=== PATIENT | female | born 1985 | race Caucasian/White ===

== ENCOUNTER 2017-09-22 18:42 | Inpatient (IN) | payer MEDICAID ==
[~2017-09-22] VITALS: Ht 165.1 cm; Wt 72.7 kg
[2017-09-22 18:50] VITALS: BP 142/68; PULSE 69; RESP 23; TEMP 97.6; O2SAT 100
[2017-09-22 21:11] LABS: AUTOMATED NEUTROPHIL # 6.6 TH/MM3 (1.8-7.7); BASOPHIL # 0.1 TH/MM3 (0-0.2); BASOPHIL % 0.6 % (0.0-2.0); EOSINOPHIL % 0.4 % (0.0-4.0); HEMATOCRIT 32.4 % (35.0-46.0); HEMOGLOBIN 11.6 GM/DL (11.6-15.3); LYMPH % 15.7 % (9.0-44.0); LYMPHOCYTE # 1.3 TH/MM3 (1.0-4.8); MEAN CELL VOLUME 71.8 FL (80.0-100.0); MEAN CORPUSCULAR HEMOGLOBIN 25.8 PG (27.0-34.0); MEAN CORPUSCULAR HGB CONC 35.9 % (32.0-36.0); MONO % 4.9 % (0.0-8.0); MONOCYTE # 0.4 TH/MM3 (0-0.9); NEUT % 78.4 % (16.0-70.0); PLATELET COUNT 156 TH/MM3 (150-450); WHITE BLOOD COUNT 8.5 TH/MM3 (4.0-11.0)
[2017-09-22 21:28] VITALS: BP 154/82; PULSE 70; RESP 24; TEMP 97.9; O2SAT 100
--- NOTE | 2017-09-22 21:28 | PD ---
HPI Chief Complaint: Abdominal Pain Time Seen by Provider: 21:16 Travel History International Travel<30 days: No Contact w/Intl Traveler<30days: No Traveled to known affect area: No History of Present Illness HPI 32-year-old female presents to the emergency department for evaluation of left upper quadrant abdominal pain that has been ongoing for 1 week, but worsened today. Patient rates the pain 10/10 without radiation, sharp and stabbing. Patient is Australian-speaking. Her nurse at bedside translates for me. The patient states she had this pain once before and was diagnosed with pancreatitis in [place]. She states she went to [facility] this morning and had labs and CT scan done. She states she was told that everything was okay was discharged home. However, the pain has been worsening since. No fevers or chills. Patient reports nausea, vomiting 1 today. She also reports 3 episodes of diarrhea today. She denies . She has history of cholecystectomy, appendectomy, , ovarian cyst. Patient denies any alcohol, tobacco, illicit drug use. No exacerbating or alleviating factors. Moderate severity. PFSH Past Medical History Diabetes: Yes Social History Alcohol Use: No Tobacco Use: No Substance Use: No Allergies-Medications (Allergen,Severity, Reaction): Coded Allergies: No Known Allergies (Unverified , 09/22/17) Review of Systems Except as stated in HPI: all other systems reviewed are Neg Physical Exam Narrative GENERAL: Well-nourished, well-developed female patient, afebrile. SKIN: Focused skin assessment warm/dry. HEAD: Normocephalic. Atraumatic. EYES: No scleral icterus. No injection or drainage. NECK: Supple, trachea midline. No JVD or lymphadenopathy. CARDIOVASCULAR: Regular rate and rhythm without murmurs, gallops, or rubs. RESPIRATORY: Breath sounds equal bilaterally. No accessory muscle use. Lungs sounds are clear to auscultation. GASTROINTESTINAL: Abdomen soft, and nondistended. Patient has diffuse tenderness to palpation.. MUSCULOSKELETAL: No cyanosis, or edema. BACK: Nontender without obvious deformity. No CVA tenderness. Data Data Last Documented VS Vital Signs Date Time Temp Pulse Resp B/P (MAP) Pulse Ox O2 Delivery O2 Flow Rate FiO2 09/22/17 21:28 97.9 70 24 154/82 (106) 100 Room Air Orders Orders Complete Blood Count With Diff (09/22/17 18:52) Comprehensive Metabolic Panel (09/22/17 18:52) Lipase (09/22/17 18:52) Prothrombin Time / Inr (Pt) (09/22/17 18:52) Act Partial Throm Time (Ptt) (09/22/17 18:52) Urinalysis - C+S If Indicated (09/22/17 18:52) Ed Urine Pregnancytest Poc (09/22/17 18:52) Electrocardiogram (09/22/17 ) Sodium Chlor 0.9% 1000 Ml Inj (Ns 1000 M (09/22/17 21:30) Morphine Inj (Morphine Inj) (09/22/17 21:30) Ondansetron Inj (Zofran Inj) (09/22/17 21:30) Labs Laboratory Tests Test 09/22/17 20:20 09/22/17 20:30 Urine Color YELLOW Urine Turbidity CLEAR Urine pH 7.0 Urine Specific [place] 1.039 Urine Protein TRACE mg/dL Urine Glucose (UA) 1000 mg/dL Urine Ketones 150 mg/dL Urine Occult Blood NEG Urine Nitrite NEG Urine Bilirubin NEG Urine Urobilinogen LESS THAN 2.0 MG/DL Urine Leukocyte Esterase TRACE Urine RBC 1 /hpf Urine WBC 5 /hpf Urine Squamous Epithelial Cells 6 /hpf Microscopic Urinalysis Comment CULT NOT INDICATED White Blood Count 8.5 TH/MM3 Red Blood Count 4.50 MIL/MM3 Hemoglobin 11.6 GM/DL Hematocrit 32.4 % Mean Corpuscular Volume 71.8 FL Mean Corpuscular Hemoglobin 25.8 PG Mean Corpuscular Hemoglobin Concent 35.9 % Red Cell Distribution Width 17.0 % Platelet Count 156 TH/MM3 Mean Platelet Volume 11.0 FL Neutrophils (%) (Auto) 78.4 % Lymphocytes (%) (Auto) 15.7 % Monocytes (%) (Auto) 4.9 % Eosinophils (%) (Auto) 0.4 % Basophils (%) (Auto) 0.6 % Neutrophils # (Auto) 6.6 TH/MM3 Lymphocytes # (Auto) 1.3 TH/MM3 Monocytes # (Auto) 0.4 TH/MM3 Eosinophils # (Auto) 0.0 TH/MM3 Basophils # (Auto) 0.1 TH/MM3 CBC Comment AUTO DIFF Differential Total Cells Counted 100 Neutrophils % (Manual) 79 % Band Neutrophils % 4 % Lymphocytes % 12 % Monocytes % 2 % Eosinophils % 2 % Basophils % 1 % Neutrophils # (Manual) 7.1 TH/MM3 Differential Comment FINAL DIFF MANUAL Platelet Estimate NORMAL Platelet Morphology Comment ENLARGED Prothrombin Time 10.0 SEC Prothromb Time International Ratio 1.0 RATIO Activated Partial Thromboplast Time 22.9 SEC Blood Urea Nitrogen 7 MG/DL Creatinine 0.63 MG/DL Random Glucose 311 MG/DL Total Protein 7.9 GM/DL Albumin 3.2 GM/DL Calcium Level 7.6 MG/DL Alkaline Phosphatase 109 U/L Aspartate Amino Transf (AST/SGOT) 434 U/L Alanine Aminotransferase (ALT/SGPT) 255 U/L Total Bilirubin 0.4 MG/DL Sodium Level 132 MEQ/L Potassium Level 4.2 MEQ/L Chloride Level 98 MEQ/L Carbon Dioxide Level 18.6 MEQ/L Anion Gap 15 MEQ/L Estimat Glomerular Filtration Rate 109 ML/MIN Lipase 1314 U/L [facility] Medical Decision Making Medical Screen Exam Complete: Yes Emergency Medical Condition: Yes Medical Record Reviewed: Yes Differential Diagnosis Pancreatitis versus diverticulitis versus UTI Narrative Course 32-year-old female presents to the emergency department for evaluation of abdominal pain for 1 week, worsening today. Patient states she was seen at [facility] this morning. Those records will be obtained. EKG, CBC , CMP, lipase, PTT, PT/INR, UA, urine test are ordered and pending. Patient is given normal saline 1 L IV bolus, morphine 4 mg IV, Zofran 4 mg IV. EKG shows sinus rhythm, heart rate 69, no acute ST changes. CBC shows no acute abnormality. CMP shows glucose 311, AST 434, ALT 255. Lipase is 1314. Coags show no acute abnormality. UA is negative for acute infection. UPT is negative. I obtained records from [facility]. CT abdomen/pelvis with IV contrast showed minimal peripancreatic stranding in the region of the head and neck likely representing mild acute interstitial edematous pancreatitis, mild dilation of the common bile duct with distal tapering, findings may be within normal limits post cholecystectomy. Hepatic steatosis with he pad of splenomegaly. [facility] is paged for admission. Diagnosis Primary Impression: Acute pancreatitis Qualified Codes: K85.90 - Acute pancreatitis without necrosis or infection, unspecified Additional Impression: Elevated LFTs Admitting Information Admitting Physician Requests: Admit Sabina Patrick Sep 22, 2017 21:28
[2017-09-22] MEDS ORDERED: SODIUM CHLOR 0.9% 1000 ML INJ 1,000 ML IV ONE (21:30)
[2017-09-22] MEDS ORDERED: ONDANSETRON HCL 4 MG/2 ML VIAL IV PUSH ONE (21:30)
[2017-09-22] MEDS ORDERED: MORPHINE SULFATE 4 MG/ML INJ IV PUSH ONE (21:30)
[2017-09-22 21:33] LABS: BILIRUBIN, URINE NEG (NEG); BLOOD, URINE NEG (NEG); GLUCOSE,URINE 1000 mg/dL (NEG); KETONE, URINE 150 mg/dL (NEG); NITRITE,URINE NEG (NEG); SQUAMOUS EPITHELIAL CELL URINE 6 /hpf (0-5); URINE COLOR YELLOW (YELLW/STRAW); URINE LEUKOCYTE ESTERASE TRACE (NEG)
[2017-09-22 21:46] LABS: ALBUMIN 3.2 GM/DL (3.4-5.0); ALKALINE PHOSPHATASE 109 U/L (45-117); ALT (GPT) 255 U/L (10-53); AST (GOT) 434 U/L (15-37); BICARBONATE 18.6 MEQ/L (21.0-32.0); BLOOD UREA NITROGEN 7 MG/DL (7-18); CALCIUM 7.6 MG/DL (8.5-10.1); CHLORIDE 98 MEQ/L (98-107); CREATININE 0.63 MG/DL (0.50-1.00); GLOMERULAR FILTRATION RATE 109 ML/MIN (>89); GLUCOSE,RANDOM 311 MG/DL (74-106); SODIUM (NA) 132 MEQ/L (136-145); TOTAL BILIRUBIN ADULT 0.4 MG/DL (0.2-1.0); TOTAL PROTEIN 7.9 GM/DL (6.4-8.2)
[2017-09-22 22:31] LABS: BANDS 4 % (0-6); BASOPHILS 1 % (0-2); LYMPHOCYTES 12 % (9-44); MONOCYTES 2 % (0-8); NEUTROPHIL # MANUAL DIFF 7.1 TH/MM3 (1.8-7.7); POLYS (SEG NEUTROPHILS) 79 % (16-70)
[2017-09-22] MEDS ORDERED: NALOXONE HCL 0.4 MG/ML AMP IV PUSH PRN (23:15)
[2017-09-22] MEDS ORDERED: ONDANSETRON HCL 4 MG/2 ML VIAL IVP PRN (23:15)
[2017-09-22] MEDS ORDERED: SODIUM CHLORIDE 0.9% FLUSH 10 ML FLUSH IV FLUSH PRN (23:15)
--- NOTE | 2017-09-22 23:33 | HHI.HP ---
HPI Service [facility] Primary Care Physician Unknown Admission Diagnosis acute pancreatitis, elevated LFTs Diagnoses: Chief Complaint: abdominal pain Travel History International Travel<30 Days: No Contact w/Intl Traveler <30 Da: No Traveled to Known Affected Are: No History of Present Illness 32-year-old female with a history of HLD, HTN, and chronic pain presents to the emergency department for left upper quadrant abdominal pain that has been ongoing for 1 week, but worsened today. Patient is Swiss-speaking. Her nurse at bedside translates for me. Patient states the pain is a 6/10 without radiation, and is stabbing in nature. The patient states she had this pain once before and was diagnosed with pancreatitis in [place]. Denies any alcohol use. She went to [facility] this morning and had labs and CT scan done. Labs were unremarkable and not 3x the normal limit and she was discharged home. The pain has been getting worse since leaving [place]. She denies any fevers or chills. She does complain of nausea but no vomiting. CT abdomen reviewed from [facility] and shows minimal peripancreatic stranding in the region of the head and neck likely representing mild acute interstitial edematous pancreatitis. Mild dilation of the common bile duct with distal tapering. Review of Systems Except as stated in HPI: all other systems reviewed are Neg Past Family Social History Past Medical History HLD HTN Chronic pain Past Surgical History Cholecystectomy Appendectomy C Section Reported Medications Reported Meds & Active Scripts Active Active Prescriptions or Reported Medications Unobtainable Allergies: Coded Allergies: No Known Allergies (Unverified , 09/22/17) Active Ordered Medications Current Medications Medications (Trade) Dose Ordered Sig/Gabbi Route Start Time Stop Time Status Last Admin Sodium Chloride 1,000 ml @ 100 mls/hr Q10H IV 09/22/17 23:15 09/23/17 00:41 (NS Flush) 2 ml UNSCH PRN IV FLUSH 09/22/17 23:15 (NS Flush) 2 ml BID IV FLUSH 09/23/17 09:00 (Zofran Inj) 4 mg Q6H PRN IVP 09/22/17 23:15 (Narcan Inj) 0.4 mg UNSCH PRN IV PUSH 09/22/17 23:15 (Morphine Inj) 2 mg Q3H PRN IV PUSH 09/22/17 23:45 (Morphine Inj) 4 mg Q3H PRN IV PUSH 09/22/17 23:45 09/23/17 00:48 (Flu (Quadrivalent) Vaccine Inj) 0.5 ml ONCE ONCE IM 09/24/17 10:00 09/24/17 10:01 Family History Patient denies any family history Social History Patient denies any tobacco, alcohol or illicit drug use Physical Exam Vital Signs Vital Signs Date Time Temp Pulse Resp B/P (MAP) Pulse Ox O2 Delivery O2 Flow Rate FiO2 09/22/17 21:28 97.9 70 24 154/82 (106) 100 Room Air 09/22/17 18:50 97.6 69 23 142/68 (92) 100 Physical Exam GENERAL: This is a well-nourished, well-developed patient, in minimal distress. SKIN: No rashes, ecchymoses or lesions. Cool and dry. HEAD: Atraumatic. Normocephalic. EYES: Pupils equal round and reactive. No injection or drainage. ENT: Nose without bleeding, purulent drainage or septal hematoma. Airway patent. NECK: Trachea midline. CARDIOVASCULAR: Regular rate and rhythm without murmurs, gallops, or rubs. RESPIRATORY: Clear to auscultation. Breath sounds equal bilaterally. No wheezes , rales, or rhonchi. GASTROINTESTINAL: Abdomen soft, defuse tenderness, nondistended. MUSCULOSKELETAL: Extremities without clubbing, cyanosis, or edema. No calf tenderness. NEUROLOGICAL: Awake and alert. Swiss speaking. Motor and sensory grossly within normal limits. Normal speech. Laboratory Laboratory Tests Test 09/22/17 20:20 09/22/17 20:30 Urine Color YELLOW Urine Turbidity CLEAR Urine pH 7.0 Urine Specific [place] 1.039 Urine Protein TRACE Urine Glucose (UA) 1000 Urine Ketones 150 Urine Occult Blood NEG Urine Nitrite NEG Urine Bilirubin NEG Urine Urobilinogen LESS THAN 2.0 Urine Leukocyte Esterase TRACE Urine RBC 1 Urine WBC 5 Urine Squamous Epithelial Cells 6 Microscopic Urinalysis Comment CULT NOT INDICATED White Blood Count 8.5 Red Blood Count 4.50 Hemoglobin 11.6 Hematocrit 32.4 Mean Corpuscular Volume 71.8 Mean Corpuscular Hemoglobin 25.8 Mean Corpuscular Hemoglobin Concent 35.9 Red Cell Distribution Width 17.0 Platelet Count 156 Mean Platelet Volume 11.0 Neutrophils (%) (Auto) 78.4 Lymphocytes (%) (Auto) 15.7 Monocytes (%) (Auto) 4.9 Eosinophils (%) (Auto) 0.4 Basophils (%) (Auto) 0.6 Neutrophils # (Auto) 6.6 Lymphocytes # (Auto) 1.3 Monocytes # (Auto) 0.4 Eosinophils # (Auto) 0.0 Basophils # (Auto) 0.1 CBC Comment AUTO DIFF Differential Total Cells Counted 100 Neutrophils % (Manual) 79 Band Neutrophils % 4 Lymphocytes % 12 Monocytes % 2 Eosinophils % 2 Basophils % 1 Neutrophils # (Manual) 7.1 Differential Comment FINAL DIFF MANUAL Platelet Estimate NORMAL Platelet Morphology Comment ENLARGED Prothrombin Time 10.0 Prothromb Time International Ratio 1.0 Activated Partial Thromboplast Time 22.9 Blood Urea Nitrogen 7 Creatinine 0.63 Random Glucose 311 Total Protein 7.9 Albumin 3.2 Calcium Level 7.6 Alkaline Phosphatase 109 Aspartate Amino Transf (AST/SGOT) 434 Alanine Aminotransferase (ALT/SGPT) 255 Total Bilirubin 0.4 Sodium Level 132 Potassium Level 4.2 Chloride Level 98 Carbon Dioxide Level 18.6 Anion Gap 15 Estimat Glomerular Filtration Rate 109 Lipase 1314 Result Diagram: 09/22/17202909/22/172029 Caprini VTE Risk Assessment Caprini VTE Risk Assessment: No/Low Risk (score <= 1) Caprini Risk Assessment Model Point Value = 1 Point Value = 2 Point Value = 3 Point Value = 5 Age 41-60 Minor surgery BMI > 25 kg/m2 Swollen legs Varicose veins or History of unexplained or recurrent spontaneous Oral contraceptives or hormone replacement Sepsis (< 1 month) Serious lung disease, including pneumonia (< 1 month) Abnormal pulmonary function Acute myocardial infarction Congestive heart failure (< 1 month) History of inflammatory bowel disease Medical patient at bed rest Age 61-74 Arthroscopic surgery Major open surgery (> 45 min) Laparoscopic surgery (> 45 min) Malignancy Confined to bed (> 72 hours) Immobilizing plaster cast Central venous access Age >= 75 History of VTE Family history of VTE Factor V Leiden Prothrombin [id number] Lupus anticoagulant Anticardiolipin antibodies Elevated serum homocysteine Heparin-induced thrombocytopenia Other congenital or acquired thrombophilia Stroke (< 1 month) Elective arthroplasty Hip, pelvis, or leg fracture Acute spinal cord injury (< 1 month) Prophylaxis Regimen Total Risk Factor Score Risk Level Prophylaxis Regimen 0-1 Low Early ambulation 2 Moderate Order ONE of the following: *Sequential Compression Device (SCD) *Heparin 5000 units SQ BID 3-4 Higher Order ONE of the following medications: *Heparin 5000 units SQ TID *Enoxaparin/Lovenox 40 mg SQ daily (WT < 150 kg, CrCl > 30 mL/min) *Enoxaparin/Lovenox 30 mg SQ daily (WT < 150 kg, CrCl > 10-29 mL/min) *Enoxaparin/Lovenox 30 mg SQ BID (WT < 150 kg, CrCl > 30 mL/min) AND/OR *Sequential Compression Device (SCD) 5 or more Highest Order ONE of the following medications: *Heparin 5000 units SQ TID (Preferred with Epidurals) *Enoxaparin/Lovenox 40 mg SQ daily (WT < 150 kg, CrCl > 30 mL/min) *Enoxaparin/Lovenox 30 mg SQ daily (WT < 150 kg, CrCl > 10-29 mL/min) *Enoxaparin/Lovenox 30 mg SQ BID (WT < 150 kg, CrCl > 30 mL/min) AND *Sequential Compression Device (SCD) Assessment and Plan Problem List: (1) Transaminitis ICD Code: R74.0 - Nonspecific elevation of levels of transaminase and lactic acid dehydrogenase [LDH] (2) Acute pancreatitis ICD Code: K85.90 - Acute pancreatitis without necrosis or infection, unspecified Status: Acute Assessment and Plan 32-year-old female with a history of HLD, HTN, and chronic pain presents to the emergency department for left upper quadrant abdominal pain that has been ongoing for 1 week. Pancreatitis, acute on chronic, lipase 1314 CT abdomen reviewed from [facility] and shows minimal peripancreatic stranding in the region of the head and neck likely representing mild acute interstitial edematous pancreatitis. Mild dilation of the common bile duct with distal tapering. -IVF for hydration -Morphine IV for pain management -NPO Transaminitis, ast 435 alt 255 -Cont IVF -Consult GI for recommendations Hyperglycemia, glucose 355 -Accu checks with SSI -A1C ordered DVT prophylaxis: SCDs Discussed Condition With Patient, RN Physician Certification 2 Midnight Certification Type: Admission for Inpatient Services Order for Inpatient Services The services are ordered in accordance with Medicare regulations or non- Medicare payer requirements, as applicable. In the case of services not specified as inpatient-only, they are appropriately provided as inpatient services in accordance with the 2-midnight benchmark. Estimated LOS (days): 2 days is the estimated time the patient will need to remain in the hospital, assuming treatment plan goals are met and no additional complications. Post-Hospital Plan: Home Problem Qualifiers (1) Acute pancreatitis: Qualified Codes: K85.90 - Acute pancreatitis without necrosis or infection, unspecified Sonia Galeano Sep 22, 2017 23:33
[2017-09-22] MEDS ORDERED: MORPHINE SULFATE 2 MG/ML INJ IV PUSH PRN (23:45)
[2017-09-22] MEDS ORDERED: MORPHINE SULFATE 4 MG/ML INJ IV PUSH PRN (23:45)
[2017-09-23] VITALS: BP 115/65; PULSE 66; RESP 15; TEMP 96.4; O2SAT 97
[2017-09-23] MEDS: SODIUM CHLOR 0.9% 1000 ML INJ 1,000 ML IV SCH ×3 (00:41→20:06)
[2017-09-23] MEDS ORDERED: DEXTROSE 50% IN WATER 50 ML VIAL(D50) IV PUSH PRN (02:00)
[2017-09-23] MEDS ORDERED: GLUCAGON 1 MG/ML VIAL OTHER PRN (02:00)
[2017-09-23 08:00] VITALS: BP 112/66; PULSE 65; RESP 17; TEMP 97.4; O2SAT 99
[2017-09-23] MEDS: INSULIN ASPART SUPPLEMENTAL SCALE SQ SCH ×4 (08:00→21:00)
[2017-09-23 08:14] LABS: AUTOMATED NEUTROPHIL # 5.9 TH/MM3 (1.8-7.7); BASOPHIL % 0.5 % (0.0-2.0); EOSINOPHIL # 0.1 TH/MM3 (0-0.4); EOSINOPHIL % 1.3 % (0.0-4.0); HEMATOCRIT 30.7 % (35.0-46.0); HEMOGLOBIN 10.5 GM/DL (11.6-15.3); LYMPH % 15.8 % (9.0-44.0); LYMPHOCYTE # 1.2 TH/MM3 (1.0-4.8); MEAN CELL VOLUME 71.6 FL (80.0-100.0); MEAN CORPUSCULAR HEMOGLOBIN 24.6 PG (27.0-34.0); MEAN CORPUSCULAR HGB CONC 34.4 % (32.0-36.0); MEAN PLATELET VOLUME 10.7 FL (7.0-11.0); MONO % 5.3 % (0.0-8.0); MONOCYTE # 0.4 TH/MM3 (0-0.9); NEUT % 77.1 % (16.0-70.0); PLATELET COUNT 143 TH/MM3 (150-450); RED BLOOD COUNT 4.28 MIL/MM3 (4.00-5.30); RED CELL DISTRIBUTION WIDTH 17.1 % (11.6-17.2); WHITE BLOOD COUNT 7.7 TH/MM3 (4.0-11.0)
[2017-09-23] MEDS: SODIUM CHLORIDE 0.9% FLUSH 10 ML FLUSH IV FLUSH SCH ×2 (08:47→20:06)
[2017-09-23 09:00] LABS: BICARBONATE 20.8 MEQ/L (21.0-32.0); CALCIUM 7.4 MG/DL (8.5-10.1); CREATININE 0.5 MG/DL (0.50-1.00)
[2017-09-23 09:14] LABS: TOTAL PROTEIN 7.1 GM/DL (6.4-8.2)
[2017-09-23 09:19] LABS: CALCIUM-PROTEIN CORRECTED 7.4 MG/DL (8.5-10.1)
--- NOTE | 2017-09-23 11:20 | PD.CONS ---
HPI History of Present Illness This is a 32 year old Danish speaking female who presented with upper quadrant pain, onset 1 day. She has had this pain before, episodes October and May of last year. No procedures were done. No hx prior probloems with liver or gallbladder. Never had EGD or colonoscopy. Deneis n/v. Denying pain at this time but she is tender on exam. CT done at [facility] showed mild pancreatitis and mild dilated CBD with distal tapering. (Daly Lyons) PFSH Past Medical History HLD HTN Chronic pain asthma DM Past Surgical History Cholecystectomy Appendectomy C Section (Daly Lyons) Coded Allergies: No Known Allergies (Unverified , 09/22/17) Family History Patient denies any family history Social History Patient denies any tobacco, alcohol or illicit drug use (Daly Lyons) Review of Systems Constitutional: DENIES: Chills Endocrine: DENIES: Polydipsia Eyes: DENIES: Blurred vision Ears, nose, mouth, throat: DENIES: Hearing loss Respiratory: DENIES: Cough Cardiovascular: DENIES: Chest pain Gastrointestinal: COMPLAINS OF: Abdominal pain, DENIES: Bloody stools, Nausea, Vomiting, Hematemesis Genitourinary: DENIES: Hematuria Musculoskeletal: DENIES: Muscle aches Integumentary: DENIES: Abnormal pigmentation Hematologic/lymphatic: DENIES: Bruising Neurologic: DENIES: Abnormal gait Psychiatric: DENIES: Confusion (Daly Lyons) GI Exam Vitals I&O Vital Signs Date Time Temp Pulse Resp B/P (MAP) Pulse Ox O2 Delivery O2 Flow Rate FiO2 09/23/17 08:00 97.4 65 17 112/66 (81) 99 09/23/17 01:00 18 09/23/17 00:00 96.4 66 15 115/65 (82) 97 09/22/17 21:28 97.9 70 24 154/82 (106) 100 Room Air 09/22/17 18:50 97.6 69 23 142/68 (92) 100 I/O 09/22/17 09/22/17 09/22/17 09/23/17 09/23/17 09/23/17 06:59 14:59 22:59 06:59 14:59 22:59 Intake Total 1000 ml Balance 1000 ml Intake IV Total 1000 ml Laboratory Test 09/22/17 20:20 09/22/17 20:30 09/23/17 07:38 Urine Color YELLOW Urine Turbidity CLEAR Urine pH 7.0 Urine Specific [place] 1.039 Urine Protein TRACE mg/dL Urine Glucose (UA) 1000 mg/dL Urine Ketones 150 mg/dL Urine Occult Blood NEG Urine Nitrite NEG Urine Bilirubin NEG Urine Urobilinogen LESS THAN 2.0 MG/DL Urine Leukocyte Esterase TRACE Urine RBC 1 /hpf Urine WBC 5 /hpf Urine Squamous Epithelial Cells 6 /hpf Microscopic Urinalysis Comment CULT NOT INDICATED White Blood Count 8.5 TH/MM3 7.7 TH/MM3 Red Blood Count 4.50 MIL/MM3 4.28 MIL/MM3 Hemoglobin 11.6 GM/DL 10.5 GM/DL Hematocrit 32.4 % 30.7 % Mean Corpuscular Volume 71.8 FL 71.6 FL Mean Corpuscular Hemoglobin 25.8 PG 24.6 PG Mean Corpuscular Hemoglobin Concent 35.9 % 34.4 % Red Cell Distribution Width 17.0 % 17.1 % Platelet Count 156 TH/MM3 143 TH/MM3 Mean Platelet Volume 11.0 FL 10.7 FL Neutrophils (%) (Auto) 78.4 % 77.1 % Lymphocytes (%) (Auto) 15.7 % 15.8 % Monocytes (%) (Auto) 4.9 % 5.3 % Eosinophils (%) (Auto) 0.4 % 1.3 % Basophils (%) (Auto) 0.6 % 0.5 % Neutrophils # (Auto) 6.6 TH/MM3 5.9 TH/MM3 Lymphocytes # (Auto) 1.3 TH/MM3 1.2 TH/MM3 Monocytes # (Auto) 0.4 TH/MM3 0.4 TH/MM3 Eosinophils # (Auto) 0.0 TH/MM3 0.1 TH/MM3 Basophils # (Auto) 0.1 TH/MM3 0.0 TH/MM3 CBC Comment AUTO DIFF DIFF FINAL Differential Total Cells Counted 100 Neutrophils % (Manual) 79 % Band Neutrophils % 4 % Lymphocytes % 12 % Monocytes % 2 % Eosinophils % 2 % Basophils % 1 % Neutrophils # (Manual) 7.1 TH/MM3 Differential Comment FINAL DIFF MANUAL Platelet Estimate NORMAL Platelet Morphology Comment ENLARGED Prothrombin Time 10.0 SEC Prothromb Time International Ratio 1.0 RATIO Activated Partial Thromboplast Time 22.9 SEC Blood Urea Nitrogen 7 MG/DL 5 MG/DL Creatinine 0.63 MG/DL 0.50 MG/DL Random Glucose 311 MG/DL 246 MG/DL Total Protein 7.9 GM/DL 7.1 GM/DL Albumin 3.2 GM/DL Calcium Level 7.6 MG/DL 7.4 MG/DL Alkaline Phosphatase 109 U/L Aspartate Amino Transf (AST/SGOT) 434 U/L Alanine Aminotransferase (ALT/SGPT) 255 U/L Total Bilirubin 0.4 MG/DL Sodium Level 132 MEQ/L 134 MEQ/L Potassium Level 4.2 MEQ/L 3.6 MEQ/L Chloride Level 98 MEQ/L 101 MEQ/L Carbon Dioxide Level 18.6 MEQ/L 20.8 MEQ/L Anion Gap 15 MEQ/L 12 MEQ/L Estimat Glomerular Filtration Rate 109 ML/MIN 142 ML/MIN Lipase 1314 U/L 737 U/L Protein Corrected Calcium 7.4 MG/DL Physical Examination HEENT: PERRL; normocephalic; atraumatic; no jaundice. CHEST: CTA CARDIAC: RRR ABDOMEN: Soft, nondistended, epigastric and LUQ TTP; no hepatosplenomegaly; bowel sounds are present in all four quadrants. EXTREMITIES: No clubbing, cyanosis, or edema. SKIN: Normal; no rash; no jaundice. DIRECTOR STRATEGIC ACCOUNT MANAGEMENT: No focal deficits; alert and oriented times three. (Daly Lyons) Assessment and Plan Plan ASSESSMENT - abd pain, elevated LFTs- could be gallstone pancreatitis, r/t hypertriglyceridemia, could have passed stone CT showed mild pancreatitis, mild dilatation CBD with distal tapering. elevated AST 434, ALT 255 on admission, Tbil WNL. lipase elevated 1314 on admission and trending down. pt says her pain is improving but is tender on exam. of note pts triglycerides are elevated 1350 PLAN - consider fibrate - MRCP - NPO - rck LFTs, lipase in am - supportive care - further recs to follow depending on MRCP result pt seen by myself and Dr Escalera and this note is on his behalf (Daly Lyons) Plan Patient was seen and examined, agree with above note, pancreatitis with elevation of liver function test, seems to be improving, questionable alcohol related, I had a discussion with radiology again with a second opinion to ensure that there is no filling defect or mass that require ERCP, he thinks that it's just taper down because of the edema in the pancreas and there is no masses or stones and since the patient's liver function tests including total bilirubin improving significantly we will just monitor and see how the patient is doing (Jorge Escalera MD) Daly Lyons Sep 23, 2017 11:20 Jorge Escalera MD Sep 24, 2017 09:42
--- NOTE | 2017-09-23 11:52 | HHI.PR ---
Subjective Remarks 32-year-old female with a history of HLD, HTN, and chronic pain presents to the emergency department for left upper quadrant abdominal pain that has been ongoing for 1 week, but worsened today. Patient is Ukrainian-speaking. Her nurse at bedside translates for me. Patient states the pain is a 6/10 without radiation, and is stabbing in nature. The patient states she had this pain once before and was diagnosed with pancreatitis in [place]. Denies any alcohol use. She went to [facility] this morning and had labs and CT scan done. Labs were unremarkable and not 3x the normal limit and she was discharged home. The pain has been getting worse since leaving [place]. She denies any fevers or chills. She does complain of nausea but no vomiting. CT abdomen reviewed from [facility] and shows minimal peripancreatic stranding in the region of the head and neck likely representing mild acute interstitial edematous pancreatitis. Mild dilation of the common bile duct with distal tapering. 09-23 patient has been seen by gastroenterology. They have ordered an MRCP We'll get a.m. labs Still some tenderness Continue pain control Continue on fluids Keep nothing by mouth Objective Vitals Vital Signs Date Time Temp Pulse Resp B/P (MAP) Pulse Ox O2 Delivery O2 Flow Rate FiO2 09/23/17 08:00 97.4 65 17 112/66 (81) 99 09/23/17 01:00 18 09/23/17 00:00 96.4 66 15 115/65 (82) 97 09/22/17 21:28 97.9 70 24 154/82 (106) 100 Room Air 09/22/17 18:50 97.6 69 23 142/68 (92) 100 I/O 09/22/17 09/22/17 09/22/17 09/23/17 09/23/17 09/23/17 07:00 15:00 23:00 07:00 15:00 23:00 Intake Total 1000 ml Balance 1000 ml Intake IV Total 1000 ml Result Diagram: 09/23/17 0738 09/23/17 0738 Other Results Laboratory Tests Test 09/22/17 20:20 09/22/17 20:30 09/23/17 07:38 Urine Color YELLOW Urine Turbidity CLEAR Urine pH 7.0 Urine Specific [place] 1.039 Urine Protein TRACE mg/dL Urine Glucose (UA) 1000 mg/dL Urine Ketones 150 mg/dL Urine Occult Blood NEG Urine Nitrite NEG Urine Bilirubin NEG Urine Urobilinogen LESS THAN 2.0 MG/DL Urine Leukocyte Esterase TRACE Urine RBC 1 /hpf Urine WBC 5 /hpf Urine Squamous Epithelial Cells 6 /hpf Microscopic Urinalysis Comment CULT NOT INDICATED White Blood Count 8.5 TH/MM3 7.7 TH/MM3 Red Blood Count 4.50 MIL/MM3 4.28 MIL/MM3 Hemoglobin 11.6 GM/DL 10.5 GM/DL Hematocrit 32.4 % 30.7 % Mean Corpuscular Volume 71.8 FL 71.6 FL Mean Corpuscular Hemoglobin 25.8 PG 24.6 PG Mean Corpuscular Hemoglobin Concent 35.9 % 34.4 % Red Cell Distribution Width 17.0 % 17.1 % Platelet Count 156 TH/MM3 143 TH/MM3 Mean Platelet Volume 11.0 FL 10.7 FL Neutrophils (%) (Auto) 78.4 % 77.1 % Lymphocytes (%) (Auto) 15.7 % 15.8 % Monocytes (%) (Auto) 4.9 % 5.3 % Eosinophils (%) (Auto) 0.4 % 1.3 % Basophils (%) (Auto) 0.6 % 0.5 % Neutrophils # (Auto) 6.6 TH/MM3 5.9 TH/MM3 Lymphocytes # (Auto) 1.3 TH/MM3 1.2 TH/MM3 Monocytes # (Auto) 0.4 TH/MM3 0.4 TH/MM3 Eosinophils # (Auto) 0.0 TH/MM3 0.1 TH/MM3 Basophils # (Auto) 0.1 TH/MM3 0.0 TH/MM3 CBC Comment AUTO DIFF DIFF FINAL Differential Total Cells Counted 100 Neutrophils % (Manual) 79 % Band Neutrophils % 4 % Lymphocytes % 12 % Monocytes % 2 % Eosinophils % 2 % Basophils % 1 % Neutrophils # (Manual) 7.1 TH/MM3 Differential Comment FINAL DIFF MANUAL Platelet Estimate NORMAL Platelet Morphology Comment ENLARGED Prothrombin Time 10.0 SEC Prothromb Time International Ratio 1.0 RATIO Activated Partial Thromboplast Time 22.9 SEC Blood Urea Nitrogen 7 MG/DL 5 MG/DL Creatinine 0.63 MG/DL 0.50 MG/DL Random Glucose 311 MG/DL 246 MG/DL Total Protein 7.9 GM/DL 7.1 GM/DL Albumin 3.2 GM/DL Calcium Level 7.6 MG/DL 7.4 MG/DL Alkaline Phosphatase 109 U/L Aspartate Amino Transf (AST/SGOT) 434 U/L Alanine Aminotransferase (ALT/SGPT) 255 U/L Total Bilirubin 0.4 MG/DL Sodium Level 132 MEQ/L 134 MEQ/L Potassium Level 4.2 MEQ/L 3.6 MEQ/L Chloride Level 98 MEQ/L 101 MEQ/L Carbon Dioxide Level 18.6 MEQ/L 20.8 MEQ/L Anion Gap 15 MEQ/L 12 MEQ/L Estimat Glomerular Filtration Rate 109 ML/MIN 142 ML/MIN Lipase 1314 U/L 737 U/L Protein Corrected Calcium 7.4 MG/DL Objective Remarks GENERAL: Awake alert oriented talkative and cooperative in some mild pain speaks mainly Ukrainian but we were able to communicate SKIN: Warm and dry. HEAD: Atraumatic. Normocephalic. EYES: Pupils equal and round. No scleral icterus. No injection or drainage. Extraocular muscles intact ENT: No nasal bleeding or discharge. Mucous membranes pink and moist. Tongue midline NECK: Trachea midline. No JVD. Supple S1-S2 no S3-S4 CARDIOVASCULAR: Regular rate and rhythm. RESPIRATORY: No accessory muscle use. Clear to auscultation. Breath sounds equal bilaterally. GASTROINTESTINAL: Abdomen soft, non-tender, nondistended. Hepatic and splenic margins not palpable. Mild midepigastric tenderness MUSCULOSKELETAL: Extremities without clubbing, cyanosis, or edema. No obvious deformities. NEUROLOGICAL: Awake and alert. No obvious cranial nerve deficits. Motor grossly within normal limits. Five out of 5 muscle strength in the arms and legs. Normal speech. PSYCHIATRIC: Appropriate mood and affect; insight and judgment normal. Medications and IVs Current Medications Sodium Chloride 1,000 ml @ 999 mls/hr BOLUS ONCE IV Last administered on 09/22 22:04; Start 09/22/17 at 21:30; Stop 09/22/17 at 22:30; Status DC Morphine Sulfate (Morphine Inj) 4 mg ONCE ONCE IV PUSH Last administered on at 22:05; Start 09/22/17 at 21:30; Stop 09/22/17 at 21:31; Status DC Ondansetron HCl (Zofran Inj) 4 mg ONCE ONCE IV PUSH Last administered on at 22:05; Start 09/22/17 at 21:30; Stop 09/22/17 at 21:31; Status DC Sodium Chloride 1,000 ml @ 100 mls/hr Q10H IV Last administered on 09/23/17at 08:47; Start 09/22/17 at 23:15 Sodium Chloride (NS Flush) 2 ml UNSCH PRN IV FLUSH FLUSH AFTER USING IV ACCESS ; Start 09/22/17 at 23:15 Sodium Chloride (NS Flush) 2 ml BID IV FLUSH Last administered on 09/23/17at 08: 47; Start 09/23/17 at 09:00 Ondansetron HCl (Zofran Inj) 4 mg Q6H PRN IVP NAUSEA OR VOMITING; Start at 23:15 Naloxone HCl (Narcan Inj) 0.4 mg UNSCH PRN IV PUSH SEE LABEL COMMENTS; Start at 23:15 Morphine Sulfate (Morphine Inj) 2 mg Q3H PRN IV PUSH pain 1-5; Start 09/22/17 at 23:45 Morphine Sulfate (Morphine Inj) 4 mg Q3H PRN IV PUSH pain 6-10 Last administered on 09/23/17at 00:48; Start 09/22/17 at 23:45 Influenza Virus Vaccine (Flu (Quadrivalent) Vaccine Inj) 0.5 ml ONCE ONCE IM ; Start 09/24/17 at 10:00; Stop 09/24/17 at 10:01 Dextrose (D50w (Vial) Inj) 50 ml UNSCH PRN IV PUSH HYPOGLYCEMIA-SEE COMMENTS; Start 09/23/17 at 02:00 Glucagon (Glucagon Inj) 1 mg UNSCH PRN OTHER HYPOGLYCEMIA-SEE COMMENTS; Start 09/23/17 at 02:00 Insulin Aspart (NovoLOG SUPPLEMENTAL SCALE) 1 ACHS SLIDING SCALE SQ ; Start at 08:00 A/P Problem List: (1) Transaminitis ICD Code: R74.0 - Nonspecific elevation of levels of transaminase and lactic acid dehydrogenase [LDH] (2) Acute pancreatitis ICD Code: K85.90 - Acute pancreatitis without necrosis or infection, unspecified Status: Acute Assessment and Plan 32-year-old female with a history of HLD, HTN, and chronic pain presents to the emergency department for left upper quadrant abdominal pain that has been ongoing for 1 week. Pancreatitis, acute on chronic, lipase 1314 CT abdomen reviewed from [facility] and shows minimal peripancreatic stranding in the region of the head and neck likely representing mild acute interstitial edematous pancreatitis. Mild dilation of the common bile duct with distal tapering. -IVF for hydration -Morphine IV for pain management -NPO To have MRCP today Transaminitis, ast 435 alt 255 -Cont IVF -Consult GI for recommendations A.m. labs Hyperglycemia, glucose 355 -Accu checks with SSI -A1C ordered Monitor blood sugars DVT prophylaxis: SCDs Discharge Planning Pending improvement of abdominal pain and clearance by GI Problem Qualifiers (1) Acute pancreatitis: Qualified Codes: K85.90 - Acute pancreatitis without necrosis or infection, unspecified Sergey Lipscomb DO Sep 23, 2017 11:52
[2017-09-23 12:00] VITALS: BP 108/56; PULSE 65; RESP 18; TEMP 97.5; O2SAT 100
[2017-09-23 13:14] LABS: CHOLESTEROL/ HDL RATIO 13.08 RATIO; HDL CHOLESTEROL 19.8 MG/DL (40.0-60.0)
[2017-09-23 15:21] LABS: HEPATITIS A AB IGM NEGATIVE (NEGATIVE); HEPATITIS B CORE AB IGM NEGATIVE (NEGATIVE); HEPATITIS B SURFACE ANTIGEN NEGATIVE (NEGATIVE); HEPATITIS C AB IgG NEGATIVE (NEGATIVE)
[2017-09-23 15:39] LABS: HEMOGLOBIN A1C 11.9 % (4.3-6.0)
[2017-09-23 16:00] VITALS: BP 113/58; PULSE 77; RESP 17; TEMP 98; O2SAT 99
--- NOTE | 2017-09-23 18:55 | RADRPT ---
EXAM DATE/TIME: 09/23/2017 17:21 [place] COMPARISON: No previous studies available for comparison. INDICATIONS : Obstruction. MEDICAL HISTORY : Hypertension. SURGICAL HISTORY : Cholecystectomy. Appendectomy. section. ENCOUNTER: Initial ACUITY: 1 day PAIN SCORE: 5/10 LOCATION: Abdomen. TECHNIQUE: Multiplanar, multisequence magnetic resonance imaging of the abdomen was performed. High-resolution 3D dataset was utilized to reconstruct maximum-intensity projection (MIP) images. FINDINGS: The liver and spleen are free of focal defects. There is decreased. signal intensity on opposed image s within the liver consistent with fatty infiltration. No focal masses are identified no intrahepatic or extra hepatic ductal dilatation is seen. The gallbladder and pancreas demonstrate no abnormality . The adrenal glands demonstrate no abnormality. The kidneys demonstrate no hydronephrosis or mass. N o free fluid or abdominal masses are identified. No para-aortic adenopathy is seen. The common duct is dilated to 11 mm no stones or masses are identified. The pancreatic duct appears n ormal. CONCLUSION: 1. No evidence of acute abdominal process. No masses are identified. 2. Common duct dilatation of uncertain etiology 3. Findings consistent with fatty infiltration of the liver. Pablito Layne MD on September 23, 2017 at 18:51 Board Certified Radiologist. This report was verified electronically.
[2017-09-23 20:00] VITALS: BP 114/65; PULSE 69; RESP 16; TEMP 98.8; O2SAT 100
--- NOTE | 2017-09-23 22:32 | EKG ---
Date Performed: 09/22/2017 Time Performed: 21:26:05 PTAGE: 32 years EKG: Sinus rhythm NORMAL ECG NO PREVIOUS TRACING DOCTOR: Nahomi Laws Interpretating Date/Time 09/23/2017 22:31:19
[2017-09-24] VITALS: BP 109/65; PULSE 70; RESP 16; TEMP 98.2; O2SAT 100
[2017-09-24] MEDS: SODIUM CHLOR 0.9% 1000 ML INJ 1,000 ML IV SCH ×2 (05:23→15:15)
[2017-09-24 06:23] LABS: AUTOMATED NEUTROPHIL # 4.9 TH/MM3 (1.8-7.7); BASOPHIL % 0.6 % (0.0-2.0); EOSINOPHIL # 0.2 TH/MM3 (0-0.4); EOSINOPHIL % 2.9 % (0.0-4.0); HEMOGLOBIN 9.9 GM/DL (11.6-15.3); LYMPHOCYTE # 1.9 TH/MM3 (1.0-4.8); MEAN CORPUSCULAR HEMOGLOBIN 23.8 PG (27.0-34.0); MEAN PLATELET VOLUME 10.3 FL (7.0-11.0); MONO % 6.4 % (0.0-8.0); MONOCYTE # 0.5 TH/MM3 (0-0.9); NEUT % 65.1 % (16.0-70.0); PLATELET COUNT 152 TH/MM3 (150-450); RED BLOOD COUNT 4.17 MIL/MM3 (4.00-5.30); RED CELL DISTRIBUTION WIDTH 17.2 % (11.6-17.2); WHITE BLOOD COUNT 7.5 TH/MM3 (4.0-11.0)
[2017-09-24 06:57] LABS: ALBUMIN 2.6 GM/DL (3.4-5.0); ALT (GPT) 130 U/L (10-53); AST (GOT) 46 U/L (15-37); DIRECT BILIRUBIN ADULT 0.1 MG/DL (0.0-0.2); PHOSPHORUS 2.3 MG/DL (2.5-4.9)
[2017-09-24 07:03] LABS: ALKALINE PHOSPHATASE 83 U/L (45-117); FREE T4 1.05 NG/DL (0.76-1.46); INDIRECT BILIRUBIN 0.2 MG/DL (0.0-0.8); TOTAL BILIRUBIN ADULT 0.3 MG/DL (0.2-1.0); TOTAL PROTEIN 6.6 GM/DL (6.4-8.2)
[2017-09-24] MEDS: INSULIN ASPART SUPPLEMENTAL SCALE SQ SCH ×4 (07:39→21:15)
[2017-09-24 08:00] VITALS: BP 105/51; PULSE 72; RESP 17; TEMP 97.8; O2SAT 100
[2017-09-24] MEDS: SODIUM CHLORIDE 0.9% FLUSH 10 ML FLUSH IV FLUSH SCH ×2 (09:00→21:00)
[2017-09-24] MEDS ORDERED: INFLUENZA VIRUS VACCINE (QUADRIVALENT) 0.5 ML SYR IM ONE (10:00)
[2017-09-24 10:33] LABS: HEMOGLOBIN A1C 11.7 % (4.3-6.0)
[2017-09-24 11:46] VITALS: BP 103/61; PULSE 59; RESP 17; TEMP 97.9; O2SAT 100
--- NOTE | 2017-09-24 14:40 | HHI.GIFU ---
Subjective Remarks Seated by window watching videos on phone. She feels better today, pain improved. She is hungry. (Daly Lyons) Objective Vitals I&O Vital Signs Date Time Temp Pulse Resp B/P (MAP) Pulse Ox O2 Delivery O2 Flow Rate FiO2 09/24/17 11:46 97.9 59 17 103/61 (75) 100 09/24/17 08:00 97.8 72 17 105/51 (69) 100 09/24/17 00:00 98.2 70 16 109/65 (80) 100 09/23/17 20:00 98.8 69 16 114/65 (81) 100 09/23/17 16:00 98.0 77 17 113/58 (76) 99 I/O 09/23/17 09/23/17 09/23/17 09/24/17 09/24/17 09/24/17 07:00 15:00 23:00 07:00 15:00 23:00 Intake Total 1000 ml 0 ml 1000 ml 931 ml Output Total 1 ml Balance 1000 ml 0 ml 1000 ml 930 ml Intake Oral 0 ml IV Total 1000 ml 1000 ml 931 ml Output Urine Total 1 ml # Voids 2 1 # Bowel Movements 0 0 Laboratory Laboratory Tests Test 09/24/17 05:47 White Blood Count 7.5 Red Blood Count 4.17 Hemoglobin 9.9 Hematocrit 30.0 Mean Corpuscular Volume 72.0 Mean Corpuscular Hemoglobin 23.8 Mean Corpuscular Hemoglobin Concent 33.0 Red Cell Distribution Width 17.2 Platelet Count 152 Mean Platelet Volume 10.3 Neutrophils (%) (Auto) 65.1 Lymphocytes (%) (Auto) 25.0 Monocytes (%) (Auto) 6.4 Eosinophils (%) (Auto) 2.9 Basophils (%) (Auto) 0.6 Neutrophils # (Auto) 4.9 Lymphocytes # (Auto) 1.9 Monocytes # (Auto) 0.5 Eosinophils # (Auto) 0.2 Basophils # (Auto) 0.0 CBC Comment DIFF FINAL Differential Comment Hemoglobin A1c 11.7 Phosphorus Level 2.3 Magnesium Level 2.0 Total Bilirubin 0.3 Direct Bilirubin 0.1 Indirect Bilirubin 0.2 Aspartate Amino Transf (AST/SGOT) 46 Alanine Aminotransferase (ALT/SGPT) 130 Alkaline Phosphatase 83 Total Protein 6.6 Albumin 2.6 Amylase Level 29 Lipase 317 Free Thyroxine 1.05 Thyroid Stimulating Hormone 3rd Gen 0.413 Imaging Last Impressions Cholangiopancreatography MRI 09/23/17 0000 Signed Impressions: Service Date/Time: Saturday, September 23, 2017 17:21 - CONCLUSION: 1. No evidence of acute abdominal process. No masses are identified. 2. Common duct dilatation of uncertain etiology 3. Findings consistent with fatty infiltration of the liver. Pablito Layne MD Physical Exam HEENT: PERRL; normocephalic; atraumatic; no jaundice. CHEST: CTA CARDIAC: RRR ABDOMEN: Soft, nondistended, nontender; no hepatosplenomegaly; bowel sounds are present in all four quadrants. EXTREMITIES: No clubbing, cyanosis, or edema. SKIN: Normal; no rash; no jaundice. AUTO TRANSMISSION MECHANIC: No focal deficits; alert and oriented times three. (Daly Lyons) Assessment and Plan Plan ASSESSMENT - abd pain, elevated LFTs- could be gallstone pancreatitis, r/t hypertriglyceridemia, could have passed stone CT showed mild pancreatitis, mild dilatation CBD with distal tapering. elevated AST 434, ALT 255 on admission, Tbil WNL. lipase elevated 1314 on admission and trending down. pt says her pain is improving but is tender on exam. of note pts triglycerides are elevated 1350 09/24/17 Pt doing better, is hungry. lipase, LFTs are trending down. nontender on exam. MRCP showed fatty liver, dilated CBD unclear etiology. PLAN - consider fibrate - clear liquids, advance as tolerated - LFTs, lipase in am - supportive care pt seen by myself and Dr Escalera and this note is on his behalf (Daly Lyons) Plan Patient was seen and examined, agree with above note, most likely fatty liver, we will monitor labs tomorrow, she is doing well we might advance diet as tolerated (Jorge Escalera MD) Daly Lyons Sep 24, 2017 14:40 Jorge Escalera MD Sep 24, 2017 18:02
--- NOTE | 2017-09-24 15:26 | HHI.PR ---
Subjective Remarks Patient is Bolivian-speaking. On interview she states that she is hungry. Her pain is controlled. Objective Vitals Vital Signs Date Time Temp Pulse Resp B/P (MAP) Pulse Ox O2 Delivery O2 Flow Rate FiO2 09/24/17 11:46 97.9 59 17 103/61 (75) 100 09/24/17 08:00 97.8 72 17 105/51 (69) 100 09/24/17 00:00 98.2 70 16 109/65 (80) 100 09/23/17 20:00 98.8 69 16 114/65 (81) 100 09/23/17 16:00 98.0 77 17 113/58 (76) 99 I/O 09/23/17 09/23/17 09/23/17 09/24/17 09/24/17 09/24/17 07:00 15:00 23:00 07:00 15:00 23:00 Intake Total 1000 ml 0 ml 1000 ml 931 ml Output Total 1 ml Balance 1000 ml 0 ml 1000 ml 930 ml Intake Oral 0 ml IV Total 1000 ml 1000 ml 931 ml Output Urine Total 1 ml # Voids 2 1 # Bowel Movements 0 0 Result Diagram: 09/24/17 0547 09/23/17 0738 Objective Remarks GENERAL: Obese, well-developed patient, Bolivian-speaking SKIN: Warm and dry. HEAD: Normocephalic. EYES: No scleral icterus. No injection or drainage. NECK: Supple, trachea midline. No JVD or lymphadenopathy. CARDIOVASCULAR: Regular rate and rhythm without murmurs, gallops, or rubs. RESPIRATORY: Breath sounds equal bilaterally. No accessory muscle use. GASTROINTESTINAL: Abdomen soft, mild diffuse tenderness, nondistended. EXTREMITIES: No cyanosis, or edema. NEUROLOGICAL: Awake, alert, and oriented x 3. Non-focal. A/P Problem List: (1) Transaminitis ICD Code: R74.0 - Nonspecific elevation of levels of transaminase and lactic acid dehydrogenase [LDH] (2) Acute pancreatitis ICD Code: K85.90 - Acute pancreatitis without necrosis or infection, unspecified Status: Acute Assessment and Plan Pancreatitis, acute on chronic Lipase [address] abdomen reviewed from [facility] and shows pancreatitis and Mild dilation of the common bile duct with distal tapering. MRCP shows CBD dilation with fatty liver evident Repeat Lipase ordered for a.m. Appreciate GI consult and recommendations Transaminitis ast 435 alt 255 on admission, trending downward Evidently from fatty liver, exact etiology unclear, may be chronic based on history LFT's ordered for a.m. Hyperglycemia Continue accuchecks and SSI coverage Diabetic Diet when solids resumed DVT prophylaxis SCDs Discharge Planning Pending improvement of abdominal pain and clearance by GI Problem Qualifiers (1) Acute pancreatitis: Qualified Codes: K85.90 - Acute pancreatitis without necrosis or infection, unspecified Dk Montgomery MD Sep 24, 2017 15:26
[2017-09-24 16:00] VITALS: BP 105/70; PULSE 64; RESP 17; TEMP 96.3; O2SAT 100
[2017-09-24 21:09] VITALS: BP 99/58; PULSE 81; RESP 17; TEMP 98.5; O2SAT 95
[2017-09-24 23:34] VITALS: BP 97/55; PULSE 62; RESP 17; TEMP 98.5; O2SAT 99
[2017-09-25] MEDS: SODIUM CHLOR 0.9% 1000 ML INJ 1,000 ML IV SCH ×2 (00:59→08:42)
[2017-09-25 07:04] LABS: ALBUMIN 2.5 GM/DL (3.4-5.0); ALT (GPT) 87 U/L (10-53); AST (GOT) 21 U/L (15-37); DIRECT BILIRUBIN ADULT LESS THAN 0.1 MG/DL (0.0-0.2)
[2017-09-25 07:05] LABS: ALKALINE PHOSPHATASE 74 U/L (45-117); INDIRECT BILIRUBIN 0.2 MG/DL (0.0-0.8); TOTAL BILIRUBIN ADULT 0.3 MG/DL (0.2-1.0); TOTAL PROTEIN 6.4 GM/DL (6.4-8.2)
[2017-09-25 08:00] VITALS: BP 103/58; PULSE 59; RESP 16; TEMP 97.4; O2SAT 100
[2017-09-25] MEDS: INSULIN ASPART SUPPLEMENTAL SCALE SQ SCH ×2 (08:42→12:26)
[2017-09-25] MEDS: SODIUM CHLORIDE 0.9% FLUSH 10 ML FLUSH IV FLUSH SCH (08:42)
--- NOTE | 2017-09-25 11:59 | HHI.GIFU ---
Subjective Remarks pt resting in bed, denies any pain. Ate eggs for breakfast. (Daly Lyons) Objective Vitals I&O Vital Signs Date Time Temp Pulse Resp B/P (MAP) Pulse Ox O2 Delivery O2 Flow Rate FiO2 09/25/17 08:00 97.4 59 16 103/58 (73) 100 09/24/17 23:34 98.5 62 17 97/55 (69) 99 09/24/17 21:09 98.5 81 17 99/58 (72) 95 09/24/17 16:00 96.3 64 17 105/70 (82) 100 I/O 09/24/17 09/24/17 09/24/17 09/25/17 09/25/17 09/25/17 07:00 15:00 23:00 07:00 15:00 23:00 Intake Total 931 ml 350 ml 360 ml 1941 ml Output Total 1 ml Balance 930 ml 350 ml 360 ml 1941 ml Intake Oral 350 ml 360 ml 480 ml IV Total 931 ml 1461 ml Output Urine Total 1 ml # Voids 5 3 2 # Bowel Movements 0 0 0 0 Laboratory Laboratory Tests Test 09/25/17 04:59 Total Bilirubin 0.3 Direct Bilirubin LESS THAN 0.1 Indirect Bilirubin 0.2 Aspartate Amino Transf (AST/SGOT) 21 Alanine Aminotransferase (ALT/SGPT) 87 Alkaline Phosphatase 74 Total Protein 6.4 Albumin 2.5 Lipase 291 Imaging Last Impressions Cholangiopancreatography MRI 09/23/17 0000 Signed Impressions: Service Date/Time: Saturday, September 23, 2017 17:21 - CONCLUSION: 1. No evidence of acute abdominal process. No masses are identified. 2. Common duct dilatation of uncertain etiology 3. Findings consistent with fatty infiltration of the liver. Pablito Layne MD Physical Exam HEENT: PERRL; normocephalic; atraumatic; no jaundice. CHEST: CTA CARDIAC: RRR ABDOMEN: Soft, nondistended, nontender; no hepatosplenomegaly; bowel sounds are present in all four quadrants. EXTREMITIES: No clubbing, cyanosis, or edema. SKIN: Normal; no rash; no jaundice. 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 (Daly Lyons) Assessment and Plan Plan ASSESSMENT - abd pain, elevated LFTs- could be gallstone pancreatitis, r/t hypertriglyceridemia, could have passed stone CT showed mild pancreatitis, mild dilatation CBD with distal tapering. elevated AST 434, ALT 255 on admission, Tbil WNL. lipase elevated 1314 on admission and trending down. pt says her pain is improving but is tender on exam. of note pts triglycerides are elevated 1350 09/24/17 Pt doing better, is hungry. lipase, LFTs are trending down. nontender on exam. MRCP showed fatty liver, dilated CBD unclear etiology. 09/25/17 pt diong well, tolerating diet. no pain. Lipase WNL, LFTs trending down and close to normal. PLAN - consider fibrate - low fat or mediterreanean diet - LFTs, lipase in am - supportive care - ok to d/c from GI standpoint pt seen by myself and Dr Escalera and this note is on his behalf (Daly Lyons) Plan Patient was seen and examined, agree with above-noted, feeling better, LFTs and lipase trending down, patient able to eat a low-fat diet, if tolerated diet okay patient may be discharged from GI perspective, he has elevated triglyceride and I advised the patient to address it with the primary team and his primary care physician because this could be contributing to his pancreatitis (Jorge Escalera MD) Daly Lyons Sep 25, 2017 11:59 Jorge Escalera MD Sep 25, 2017 17:32
[2017-09-25 12:12] VITALS: BP 100/50; PULSE 53; RESP 18; TEMP 97.6; O2SAT 100
--- NOTE | 2017-09-25 12:44 | HHI.DS ---
Discharge Summary Admission Date Sep 22, 2017 at 22:54 Discharge Date: Sep 25, 2017 Admitting Diagnosis acute pancreatitis, elevated LFTs (1) Transaminitis ICD Code: R74.0 - Nonspecific elevation of levels of transaminase and lactic acid dehydrogenase [LDH] (2) Acute pancreatitis ICD Code: K85.90 - Acute pancreatitis without necrosis or infection, unspecified Status: Acute Procedures MRCP Brief History - From Admission 32-year-old female with a history of HLD, HTN, and chronic pain presents to the emergency department for left upper quadrant abdominal pain that has been ongoing for 1 week, but worsened today. Patient is Cymro-speaking. Her nurse at bedside translates for me. Patient states the pain is a 6/10 without radiation, and is stabbing in nature. The patient states she had this pain once before and was diagnosed with pancreatitis in [place]. Denies any alcohol use. She went to [facility] this morning and had labs and CT scan done. Labs were unremarkable and not 3x the normal limit and she was discharged home. The pain has been getting worse since leaving [place]. She denies any fevers or chills. She does complain of nausea but no vomiting. CT abdomen reviewed from [facility] and shows minimal peripancreatic stranding in the region of the head and neck likely representing mild acute interstitial edematous pancreatitis. Mild dilation of the common bile duct with distal tapering. CBC/BMP: 09/24/17 0547 09/23/17 0738 Significant Findings Laboratory Tests Test 09/22/17 20:20 09/22/17 20:30 09/23/17 07:38 09/23/17 12:27 Urine Specific [place] 1.039 (1.002-1.035) Urine Glucose (UA) 1000 mg/dL (NEG) Urine Ketones 150 mg/dL (NEG) Urine Leukocyte Esterase TRACE (NEG) Hematocrit 32.4 % (35.0-46.0) 30.7 % (35.0-46.0) Mean Corpuscular Volume 71.8 FL (80.0-100.0) 71.6 FL (80.0-100.0) Mean Corpuscular Hemoglobin 25.8 PG (27.0-34.0) 24.6 PG (27.0-34.0) Neutrophils (%) (Auto) 78.4 % (16.0-70.0) 77.1 % (16.0-70.0) Neutrophils % (Manual) 79 % (16-70) Platelet Morphology Comment ENLARGED (NORMAL) Activated Partial Thromboplast Time 22.9 SEC (24.3-30.1) Random Glucose 311 MG/DL (74-106) 246 MG/DL (74-106) Albumin 3.2 GM/DL (3.4-5.0) Calcium Level 7.6 MG/DL (8.5-10.1) 7.4 MG/DL (8.5-10.1) Aspartate Amino Transf (AST/SGOT) 434 U/L (15-37) Alanine Aminotransferase (ALT/SGPT) 255 U/L (10-53) Sodium Level 132 MEQ/L (136-145) 134 MEQ/L (136-145) Carbon Dioxide Level 18.6 MEQ/L (21.0-32.0) 20.8 MEQ/L (21.0-32.0) Lipase 1314 U/L (73-393) 737 U/L (73-393) Hemoglobin 10.5 GM/DL (11.6-15.3) Platelet Count 143 TH/MM3 (150-450) Blood Urea Nitrogen 5 MG/DL (7-18) Hemoglobin A1c 11.9 % (4.3-6.0) Protein Corrected Calcium 7.4 MG/DL (8.5-10.1) Triglycerides Level 1350 MG/DL (42-150) Cholesterol Level 259 MG/DL (120-200) HDL Cholesterol 19.8 MG/DL (40.0-60.0) Test 09/24/17 05:47 09/25/17 04:59 Hemoglobin 9.9 GM/DL (11.6-15.3) Hematocrit 30.0 % (35.0-46.0) Mean Corpuscular Volume 72.0 FL (80.0-100.0) Mean Corpuscular Hemoglobin 23.8 PG (27.0-34.0) Hemoglobin A1c 11.7 % (4.3-6.0) Phosphorus Level 2.3 MG/DL (2.5-4.9) Aspartate Amino Transf (AST/SGOT) 46 U/L (15-37) Alanine Aminotransferase (ALT/SGPT) 130 U/L (10-53) 87 U/L (10-53) Albumin 2.6 GM/DL (3.4-5.0) 2.5 GM/DL (3.4-5.0) PE at Discharge GENERAL: Obese, well-developed patient, Cymro-speaking SKIN: Warm and dry. HEAD: Normocephalic. EYES: No scleral icterus. No injection or drainage. NECK: Supple, trachea midline. No JVD or lymphadenopathy. CARDIOVASCULAR: Regular rate and rhythm without murmurs, gallops, or rubs. RESPIRATORY: Breath sounds equal bilaterally. No accessory muscle use. GASTROINTESTINAL: Abdomen soft, mild diffuse tenderness, nondistended. EXTREMITIES: No cyanosis, or edema. NEUROLOGICAL: Awake, alert, and oriented x 3. Non-focal. Hospital Course Nausea vomiting on September 22, 2017 found to have pancreatitis with elevated liver enzymes. MRCP showed dilated common bile duct and evidence of fatty liver disease. There is no obstructing stone and etiology remains somewhat unclear as to the origination of her symptoms. She has however improved greatly her liver function tests have returned near normal and her pancreatic enzymes returned to normal. She is requesting to go home today. I suggested that she get repeat labs in about 5 days. She states she can get these labs at her primary care clinic in the [facility]. She also has diabetic management at that same clinic. Patient is stable for discharge. Pt Condition on Discharge: Good Discharge Disposition: Discharge Home Discharge Time: <= 30 minutes Discharge Instructions DIET: Follow Instructions for: Diabetic Diet Activities you can perform: Regular-No Restrictions Dk Montgomery MD Sep 25, 2017 12:44
== END 2017-09-25 17:58 | disposition home or self-care (01) | DRG 440 ==
LOC: NEPE 18:42 → NEDA 22:54 → N06B 09-23
PROVIDERS: ADMIT Family Medicine; ATTEND Family Medicine
DX: K85.90 Acute pancreatitis without necrosis or infection, unspecified (principal); E11.65 Type 2 diabetes mellitus with hyperglycemia; R74.0 Nonspecific elevation of levels of transaminase and lactic acid dehydrogenase [LDH]; K76.0 Fatty (change of) liver, not elsewhere classified; I10 Essential (primary) hypertension; K83.8 Other specified diseases of biliary tract; J45.909 Unspecified asthma, uncomplicated; E78.1 Pure hyperglyceridemia; R60.9 Edema, unspecified; E78.5 Hyperlipidemia, unspecified; G89.29 Other chronic pain; Z90.49 Acquired absence of other specified parts of digestive tract
CPT/HCPCS: 74181; 76377; 80048; 80053; 80061; 80074; 80076; 81001; 82150; 82948; 83036; 83690; 83735; 84100; 84155; 84439; 84443; 84703; 85007; 85025; 85027; 85610; 85730; 93005; 96361; 96374; 96375; J1815; J2270; J2405; J7030

== ENCOUNTER 2017-10-14 09:34 | Inpatient (IN) | payer MEDICAID ==
[2017-10-14 09:59] VITALS: BP 132/63; PULSE 76; RESP 16; O2SAT 100
[2017-10-14 11:07] LABS: BASOPHIL % 0.4 % (0.0-2.0); EOSINOPHIL # 0.1 TH/MM3 (0-0.4); EOSINOPHIL % 0.6 % (0.0-4.0); HEMATOCRIT 37.1 % (35.0-46.0); HEMOGLOBIN 13.2 GM/DL (11.6-15.3); LYMPH % 16.5 % (9.0-44.0); LYMPHOCYTE # 1.9 TH/MM3 (1.0-4.8); MEAN CELL VOLUME 71.3 FL (80.0-100.0); MEAN CORPUSCULAR HEMOGLOBIN 25.3 PG (27.0-34.0); MEAN CORPUSCULAR HGB CONC 35.4 % (32.0-36.0); MEAN PLATELET VOLUME 9.5 FL (7.0-11.0); MONO % 4.9 % (0.0-8.0); MONOCYTE # 0.6 TH/MM3 (0-0.9); NEUT % 77.6 % (16.0-70.0); PLATELET COUNT 86 TH/MM3 (150-450); RED BLOOD COUNT 5.21 MIL/MM3 (4.00-5.30); RED CELL DISTRIBUTION WIDTH 16.7 % (11.6-17.2); WHITE BLOOD COUNT 11.6 TH/MM3 (4.0-11.0)
[2017-10-14 11:10] LABS: BACTERIA, URINE RARE /hpf; BILIRUBIN, URINE NEG (NEG); BLOOD, URINE NEG (NEG); GLUCOSE,URINE 1000 mg/dL (NEG); KETONE, URINE 150 mg/dL (NEG); NITRITE,URINE NEG (NEG); PH, URINE 7.5 (5.0-8.5); SQUAMOUS EPITHELIAL CELL URINE 4 /hpf (0-5); URINE COLOR LIGHT-YELLOW (YELLW/STRAW); URINE LEUKOCYTE ESTERASE NEG (NEG)
[2017-10-14 11:28] LABS: ALBUMIN 3.5 GM/DL (3.4-5.0); ALKALINE PHOSPHATASE 98 U/L (45-117); BICARBONATE 11.5 MEQ/L (21.0-32.0); CALCIUM 8.3 MG/DL (8.5-10.1); CHLORIDE 94 MEQ/L (98-107); CREATININE 0.77 MG/DL (0.50-1.00); GLOMERULAR FILTRATION RATE 86 ML/MIN (>89); GLUCOSE,RANDOM 428 MG/DL (74-106); SODIUM (NA) 129 MEQ/L (136-145); TOTAL BILIRUBIN ADULT 1.1 MG/DL (0.2-1.0)
[2017-10-14 11:29] LABS: BLOOD UREA NITROGEN 11 MG/DL (7-18)
[2017-10-14] MEDS ORDERED: ALUMINUM/MAGNESIUM/SIMETH 30 ML CUP PO ONE (11:45)
[2017-10-14] MEDS ORDERED: LIDOCAINE VISCOUS 2% SOLN 15 ML UDC PO ONE (11:45)
[2017-10-14] MEDS ORDERED: SODIUM CHLOR 0.9% 1000 ML INJ 1,000 ML IV ONE ×2 (11:45→12:30)
[2017-10-14] MEDS ORDERED: SODIUM CHLORIDE 0.9% FLUSH 10 ML FLUSH IV FLUSH PRN ×2 (11:45→15:00)
[2017-10-14] MEDS ORDERED: ONDANSETRON HCL 4 MG/2 ML VIAL IV PUSH ONE (11:45)
[2017-10-14] MEDS ORDERED: KETOROLAC TROMETHAMINE 30 MG/ML (IVP) VIAL IV PUSH ONE (11:45)
[2017-10-14 11:58] LABS: TOTAL PROTEIN 8.5 GM/DL (6.4-8.2)
--- NOTE | 2017-10-14 12:05 | PD ---
HPI Chief Complaint: GI Complaint Time Seen by Provider: 11:10 Travel History International Travel<30 days: No Contact w/Intl Traveler<30days: No Traveled to known affect area: No History of Present Illness HPI Duplicate PFSH Past Medical History Asthma: Yes Cardiovascular Problems: Yes High Cholesterol: Yes Diabetes: Yes Endocrine: Yes Musculoskeletal: Yes Neurologic: Yes Respiratory: Yes Migraines: Yes Pancreatitis: Yes ?: Unknown : 6 Para: 6 Tubal Ligation: Yes Past Surgical History Abdominal Surgery: Yes (appendectomy, gallbladder) Appendectomy: Yes Section: Yes (x5) Cholecystectomy: Yes Gynecologic Surgery: Yes (c section, ovaries) Social History Alcohol Use: No Tobacco Use: No Substance Use: No Allergies-Medications (Allergen,Severity, Reaction): Coded Allergies: No Known Allergies (Unverified , 09/22/17) Reported Meds & Prescriptions Reported Meds & Active Scripts Active Active Prescriptions or Reported Medications Unobtainable Data Data Last Documented VS Vital Signs Date Time Temp Pulse Resp B/P (MAP) Pulse Ox O2 Delivery O2 Flow Rate FiO2 10/14/17 12:11 100 Room Air 10/14/17 09:59 76 16 132/63 (86) Orders Orders Complete Blood Count With Diff (10/14/17 10:00) Comprehensive Metabolic Panel (10/14/17 10:00) Urinalysis - C+S If Indicated (10/14/17 10:00) Ed Urine Pregnancytest Poc (10/14/17 10:00) Iv Access Insert/Monitor (10/14/17 10:00) Oxygen Administration (10/14/17 10:00) Oximetry (10/14/17 10:00) Lipase (10/14/17 10:00) Ketorolac Inj (Toradol Inj) (10/14/17 11:45) Sodium Chlor 0.9% 1000 Ml Inj (Ns 1000 M (10/14/17 11:45) Ondansetron Inj (Zofran Inj) (10/14/17 11:45) Sodium Chloride 0.9% Flush (Ns Flush) (10/14/17 11:45) Al-Mag Hy-Si 40-40-4 Mg/Ml Liq (Mag-Al P (10/14/17 11:45) Lidocaine 2% Viscous (Xylocaine 2% Visco (10/14/17 11:45) Blood Gas Venous (Vbg) (10/14/17 12:24) Beta Hydroxybutyrate (Acetone) (10/14/17 12:24) Sodium Chlor 0.9% 1000 Ml Inj (Ns 1000 M (10/14/17 12:30) Lactic Acid (10/14/17 12:24) Sodium Chlor 0.9% 1000 Ml Inj (Ns 1000 M (10/14/17 12:52) Dext 5%-Nacl 0.9% 1000 Ml Inj (D5w-Ns 10 (10/14/17 12:52) Insulin Regular (Iv Infusion) (Novolin R (10/14/17 13:00) Potassium Chlor 20 Meq Premix (Kcl 20 Me (10/14/17 13:00) Potassium Chlor 20 Meq Premix (Kcl 20 Me (10/14/17 13:00) Potassium Chlor 20 Meq Premix (Kcl 20 Me (10/14/17 13:00) Potassium Chlor 20 Meq Premix (Kcl 20 Me (10/14/17 13:00) Basic Metabolic Panel (Bmp) (10/14/17 13:15) Tylenol (Acetaminophen) (10/14/17 13:34) Salicylates (Aspirin) (10/14/17 13:34) Alcohol (Ethanol) (10/14/17 13:34) Osmolality,Serum (10/14/17 13:34) Admit Order (Ed Use Only) (10/14/17 ) Labs Laboratory Tests Test 10/14/17 10:10 10/14/17 12:30 10/14/17 12:33 10/14/17 13:05 White Blood Count 11.6 TH/MM3 Red Blood Count 5.21 MIL/MM3 Hemoglobin 13.2 GM/DL Hematocrit 37.1 % Mean Corpuscular Volume 71.3 FL Mean Corpuscular Hemoglobin 25.3 PG Mean Corpuscular Hemoglobin Concent 35.4 % Red Cell Distribution Width 16.7 % Platelet Count 86 TH/MM3 Mean Platelet Volume 9.5 FL Neutrophils (%) (Auto) 77.6 % Lymphocytes (%) (Auto) 16.5 % Monocytes (%) (Auto) 4.9 % Eosinophils (%) (Auto) 0.6 % Basophils (%) (Auto) 0.4 % Neutrophils # (Auto) 9.0 TH/MM3 Lymphocytes # (Auto) 1.9 TH/MM3 Monocytes # (Auto) 0.6 TH/MM3 Eosinophils # (Auto) 0.1 TH/MM3 Basophils # (Auto) 0.0 TH/MM3 CBC Comment AUTO DIFF Differential Comment AUTO DIFF CONFIRMED Platelet Estimate LOW Platelet Morphology Comment ENLARGED Urine Color LIGHT-YELLOW Urine Turbidity CLEAR Urine pH 7.5 Urine Specific [place] 1.027 Urine Protein TRACE mg/dL Urine Glucose (UA) 1000 mg/dL Urine Ketones 150 mg/dL Urine Occult Blood NEG Urine Nitrite NEG Urine Bilirubin NEG Urine Urobilinogen LESS THAN 2.0 MG/DL Urine Leukocyte Esterase NEG Urine RBC LESS THAN 1 /hpf Urine WBC LESS THAN 1 /hpf Urine Squamous Epithelial Cells 4 /hpf Urine Bacteria RARE /hpf Microscopic Urinalysis Comment CULT NOT INDICATED Blood Urea Nitrogen 11 MG/DL Creatinine 0.77 MG/DL Random Glucose 428 MG/DL Total Protein 8.5 GM/DL Albumin 3.5 GM/DL Calcium Level 8.3 MG/DL Alkaline Phosphatase 98 U/L Aspartate Amino Transf (AST/SGOT) 99 U/L Alanine Aminotransferase (ALT/SGPT) 65 U/L Total Bilirubin 1.1 MG/DL Sodium Level 129 MEQ/L Potassium Level 4.3 MEQ/L Chloride Level 94 MEQ/L Carbon Dioxide Level 11.5 MEQ/L Anion Gap 24 MEQ/L Estimat Glomerular Filtration Rate 86 ML/MIN Lipase 49 U/L B-Hydroxybutyrate 0.88 MMOL/L Blood Gas Puncture Site VEIN Blood Gas Patient Temperature 98.6 Venous Blood pH 7.46 Venous Blood Partial Pressure CO2 37 mmHg Venous Blood Partial Pressure O2 46 mmHg Venous Blood HCO3 26 mmol/L Venous Blood Oxygen Saturation 78 % Venous Blood Oxygen Content 11.9 Vol % Venous Blood Base Excess 2.2 mmol/L Oxygen Delivery Device ROOM AIR Blood Gas Inspired Oxygen 21 % Test 10/14/17 13:47 Acetaminophen Level LESS THAN 2.0 MCG/ML Ethyl Alcohol Level LESS THAN 3 MG/DL MDM Scripts Unable to Obtain Active Prescriptions or Reported Meds Delmer Mabry MD Oct 14, 2017 12:05
[2017-10-14 12:10] LABS: ALT (GPT) 65 U/L (10-53); AST (GOT) 99 U/L (15-37)
[2017-10-14 12:11] VITALS: O2SAT 100
[2017-10-14] MEDS ORDERED: DEXT 5%-NACL 0.9% 1000 ML INJ 1,000 ML IV SCH (12:52)
[2017-10-14] MEDS ORDERED: SODIUM CHLOR 0.9% 1000 ML INJ 1,000 ML IV SCH ×2 (12:52→15:00)
[2017-10-14] MEDS ORDERED: POTASSIUM CHLOR 20 MEQ PREMIX 100 ML IV PRN ×4 (13:00)
[2017-10-14] MEDS ORDERED: INSULIN REGULAR (IV INFUSION) 100 UNITS in SODIUM CHLORIDE 0.9% INJ 99 ML IV PRN (13:00)
--- NOTE | 2017-10-14 13:36 | PD ---
HPI Chief Complaint: GI Complaint Time Seen by Provider: 11:10 Travel History International Travel<30 days: No Contact w/Intl Traveler<30days: No Traveled to known affect area: No History of Present Illness HPI Patient is a 32-year-old female Bahamian only speaker, I have used Hari Rashid PA-C as my pricing/signage team member who is fluent in [place]ian. Patient presents emergency department with abdominal pain generalized accompanied with some nausea without vomiting. She states her pain started last night. She has recent history of being admitted to the hospital for pancreatitis, she had an ERCP which was negative and status post cholecystectomy. States the pain is fairly severe, not associate with any fevers, no diarrhea, she does not endorse any drinking Tylenol salicylate methanol or ethylene glycol ingestion. Symptoms since last night, severe, associated with nausea without vomiting, context as above PFSH Past Medical History Asthma: Yes Cardiovascular Problems: Yes High Cholesterol: Yes Diabetes: Yes Endocrine: Yes Musculoskeletal: Yes Neurologic: Yes Respiratory: Yes Migraines: Yes Pancreatitis: Yes ?: Unknown : 6 Para: 6 Tubal Ligation: Yes Past Surgical History Abdominal Surgery: Yes (appendectomy, gallbladder) Appendectomy: Yes Section: Yes (x5) Cholecystectomy: Yes Gynecologic Surgery: Yes (c section, ovaries) Social History Alcohol Use: No Tobacco Use: No Substance Use: No Allergies-Medications (Allergen,Severity, Reaction): Coded Allergies: No Known Allergies (Unverified , 09/22/17) Reported Meds & Prescriptions Reported Meds & Active Scripts Active Active Prescriptions or Reported Medications Unobtainable Review of Systems Except as stated in HPI: all other systems reviewed are Neg Physical Exam Narrative GENERAL: Well-developed, uncomfortable but nontoxic SKIN: Focused skin assessment warm/dry. HEAD: Atraumatic. Normocephalic. EYES: Pupils equal and round. No scleral icterus. No injection or drainage. ENT: No nasal bleeding or discharge. Mucous membranes pink and moist. NECK: Trachea midline. No JVD. CARDIOVASCULAR: Regular rate and rhythm. No murmur appreciated. RESPIRATORY: No accessory muscle use. Clear to auscultation. Breath sounds equal bilaterally. GASTROINTESTINAL: Abdomen soft, non-tender, nondistended. Hepatic and splenic margins not palpable. No rebound no percussive tenderness MUSCULOSKELETAL: No obvious deformities. No clubbing. No cyanosis. No edema. NEUROLOGICAL: Awake and alert. No obvious cranial nerve deficits. Motor grossly within normal limits. Normal speech. PSYCHIATRIC: Appropriate mood and affect; insight and judgment normal. Data Data Last Documented VS Vital Signs Date Time Temp Pulse Resp B/P (MAP) Pulse Ox O2 Delivery O2 Flow Rate FiO2 10/14/17 12:11 100 Room Air 10/14/17 09:59 76 16 132/63 (86) Orders Orders Complete Blood Count With Diff (10/14/17 10:00) Comprehensive Metabolic Panel (10/14/17 10:00) Urinalysis - C+S If Indicated (10/14/17 10:00) Ed Urine Pregnancytest Poc (10/14/17 10:00) Iv Access Insert/Monitor (10/14/17 10:00) Oxygen Administration (10/14/17 10:00) Oximetry (10/14/17 10:00) Lipase (10/14/17 10:00) Ketorolac Inj (Toradol Inj) (10/14/17 11:45) Sodium Chlor 0.9% 1000 Ml Inj (Ns 1000 M (10/14/17 11:45) Ondansetron Inj (Zofran Inj) (10/14/17 11:45) Sodium Chloride 0.9% Flush (Ns Flush) (10/14/17 11:45) Al-Mag Hy-Si 40-40-4 Mg/Ml Liq (Mag-Al P (10/14/17 11:45) Lidocaine 2% Viscous (Xylocaine 2% Visco (10/14/17 11:45) Blood Gas Venous (Vbg) (10/14/17 12:24) Beta Hydroxybutyrate (Acetone) (10/14/17 12:24) Sodium Chlor 0.9% 1000 Ml Inj (Ns 1000 M (10/14/17 12:30) Lactic Acid (10/14/17 12:24) Sodium Chlor 0.9% 1000 Ml Inj (Ns 1000 M (10/14/17 12:52) Dext 5%-Nacl 0.9% 1000 Ml Inj (D5w-Ns 10 (10/14/17 12:52) Insulin Regular (Iv Infusion) (Novolin R (10/14/17 13:00) Potassium Chlor 20 Meq Premix (Kcl 20 Me (10/14/17 13:00) Potassium Chlor 20 Meq Premix (Kcl 20 Me (10/14/17 13:00) Potassium Chlor 20 Meq Premix (Kcl 20 Me (10/14/17 13:00) Potassium Chlor 20 Meq Premix (Kcl 20 Me (10/14/17 13:00) Basic Metabolic Panel (Bmp) (10/14/17 13:15) Tylenol (Acetaminophen) (10/14/17 13:34) Salicylates (Aspirin) (10/14/17 13:34) Alcohol (Ethanol) (10/14/17 13:34) Osmolality,Serum (10/14/17 13:34) Admit Order (Ed Use Only) (10/14/17 ) Protein Corrected Calcium(Pcc) (10/14/17 13:47) Labs Laboratory Tests Test 10/14/17 10:10 10/14/17 12:30 10/14/17 12:33 10/14/17 13:05 White Blood Count 11.6 TH/MM3 Red Blood Count 5.21 MIL/MM3 Hemoglobin 13.2 GM/DL Hematocrit 37.1 % Mean Corpuscular Volume 71.3 FL Mean Corpuscular Hemoglobin 25.3 PG Mean Corpuscular Hemoglobin Concent 35.4 % Red Cell Distribution Width 16.7 % Platelet Count 86 TH/MM3 Mean Platelet Volume 9.5 FL Neutrophils (%) (Auto) 77.6 % Lymphocytes (%) (Auto) 16.5 % Monocytes (%) (Auto) 4.9 % Eosinophils (%) (Auto) 0.6 % Basophils (%) (Auto) 0.4 % Neutrophils # (Auto) 9.0 TH/MM3 Lymphocytes # (Auto) 1.9 TH/MM3 Monocytes # (Auto) 0.6 TH/MM3 Eosinophils # (Auto) 0.1 TH/MM3 Basophils # (Auto) 0.0 TH/MM3 CBC Comment AUTO DIFF Differential Comment AUTO DIFF CONFIRMED Platelet Estimate LOW Platelet Morphology Comment ENLARGED Urine Color LIGHT-YELLOW Urine Turbidity CLEAR Urine pH 7.5 Urine Specific [place] 1.027 Urine Protein TRACE mg/dL Urine Glucose (UA) 1000 mg/dL Urine Ketones 150 mg/dL Urine Occult Blood NEG Urine Nitrite NEG Urine Bilirubin NEG Urine Urobilinogen LESS THAN 2.0 MG/DL Urine Leukocyte Esterase NEG Urine RBC LESS THAN 1 /hpf Urine WBC LESS THAN 1 /hpf Urine Squamous Epithelial Cells 4 /hpf Urine Bacteria RARE /hpf Microscopic Urinalysis Comment CULT NOT INDICATED Blood Urea Nitrogen 11 MG/DL Creatinine 0.77 MG/DL Random Glucose 428 MG/DL Total Protein 8.5 GM/DL Albumin 3.5 GM/DL Calcium Level 8.3 MG/DL Alkaline Phosphatase 98 U/L Aspartate Amino Transf (AST/SGOT) 99 U/L Alanine Aminotransferase (ALT/SGPT) 65 U/L Total Bilirubin 1.1 MG/DL Sodium Level 129 MEQ/L Potassium Level 4.3 MEQ/L Chloride Level 94 MEQ/L Carbon Dioxide Level 11.5 MEQ/L Anion Gap 24 MEQ/L Estimat Glomerular Filtration Rate 86 ML/MIN Lipase 49 U/L B-Hydroxybutyrate 0.88 MMOL/L Lactic Acid Level 0.5 mmol/L Blood Gas Puncture Site VEIN Blood Gas Patient Temperature 98.6 Venous Blood pH 7.46 Venous Blood Partial Pressure CO2 37 mmHg Venous Blood Partial Pressure O2 46 mmHg Venous Blood HCO3 26 mmol/L Venous Blood Oxygen Saturation 78 % Venous Blood Oxygen Content 11.9 Vol % Venous Blood Base Excess 2.2 mmol/L Oxygen Delivery Device ROOM AIR Blood Gas Inspired Oxygen 21 % Test 10/14/17 13:47 Blood Urea Nitrogen 9 MG/DL Creatinine 0.60 MG/DL Random Glucose 309 MG/DL Total Protein 6.4 GM/DL Calcium Level 7.4 MG/DL Sodium Level 136 MEQ/L Potassium Level 3.5 MEQ/L Chloride Level 102 MEQ/L Carbon Dioxide Level 16.9 MEQ/L Anion Gap 17 MEQ/L Estimat Glomerular Filtration Rate 115 ML/MIN Serum Osmolality 303 MOSM/KG Protein Corrected Calcium 7.8 MG/DL Salicylates Level LESS THAN 1.7 MG/DL Acetaminophen Level LESS THAN 2.0 MCG/ML Ethyl Alcohol Level LESS THAN 3 MG/DL [facility] Medical Decision Making Medical Screen Exam Complete: Yes Emergency Medical Condition: Yes Differential Diagnosis DKA, dehydration, acidosis, pancreatitis, acute abdomen seems unlikely, Narrative Course Patient is a 32-year-old female Bah[place]ian only speaker limiting her history. She presents the emergency department with nausea vomiting generalized abdominal cramping. She was admitted last month for history of pancreatitis, she had an ERCP at that time showed mildly dilated biliary tree but there was no obstructing stone. Today she presents emergency department, she has on her BMP an elevated anion gap and a decreased tCO2 consistent with DKA. She does have a recent A1c near 12. VBG was performed and the patient has actually a pH of 7.4 with a bicarb of 24. This is inconsistent with DKA. I have had the respiratory therapist repeat the VBG and it showed no change. She was given 2 L normal saline, initially she had orders for DKA but did not receive any insulin in the emergency department. I have asked nursing to repeat the VBG after the 2 L bolus, she does not provide a history of to suggest toxic ingestion. I have added Tylenol salicylate and serum osmole anyways. Received a call from lab about the patient's lactic acid and is very difficult to process her labs secondary to grossly lipemic. Indeed her last triglycerides were near 1500. Very difficult to interpret these labs. I have asked for admission from the residents and will be admitted. Diagnosis Primary Impression: Acidosis Additional Impressions: Transaminitis Dehydration Admitting Information Admitting Physician Requests: Admit Scripts Unable to Obtain Active Prescriptions or Reported Meds Condition: Stable Delmer Mabry MD Oct 14, 2017 13:35
[2017-10-14 14:34] LABS: ACETAMINOPHEN LESS THAN 2.0 MCG/ML (10.0-30.0)
[2017-10-14 14:42] LABS: BICARBONATE 16.9 MEQ/L (21.0-32.0); CALCIUM 7.4 MG/DL (8.5-10.1); CREATININE 0.6 MG/DL (0.50-1.00)
[2017-10-14] MEDS ORDERED: NALOXONE HCL 0.4 MG/ML AMP IV PUSH PRN ×2 (15:00→18:15)
[2017-10-14] MEDS ORDERED: LACTULOSE SYRUP 20 GM/30 ML CUP PO PRN (15:00)
[2017-10-14] MEDS ORDERED: MAGNESIUM HYDROXIDE SUSP 30 ML CUP PO PRN (15:00)
[2017-10-14] MEDS ORDERED: SENNOSIDES 8.6 MG TAB PO PRN (15:00)
[2017-10-14] MEDS ORDERED: ONDANSETRON HCL 4 MG/2 ML VIAL IVP PRN (15:00)
[2017-10-14] MEDS ORDERED: BISACODYL 10 MG SUPP RECTAL PRN (15:00)
--- NOTE | 2017-10-14 15:08 | HHI.HP ---
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 Patient is a 32F with history of DM, HL and pancreatitis who presents with one day history of terrible stomach pain that went to be back, vomiting alot. She had pain in the head and teeth. Pain started last night. The location is in the upper part of the stomach. The pain is the same to the pain she had when she was admitted about a month ago for pancreatitis. The pain is described as stabbing, sharp, burning. Constant. Pain around the teeth preceded stomach pain which preceded nausea and vomiting. She has vomiting about 8-10 times since onset of symptoms; it looked initially like what she ate, then greenish. No blood in the vomitus. Last episode of vomiting was in the ED. She had not been able to keep down any food since symptoms started. She notes crushing chest pain occurring last night, just before abdominal pain, pleuritic in nature. She notes sore throat and some shortness of breath then as well. She had diarrhea started a while before abdominal pain (does not give exact start time for this) watery, and now painful to go to the bathroom. No blood in the stool noted. She also has episodes of constipation. Last bowel movement this morning. The pain and nausea is a little better since coming to ED. No sick contacts noted. No recent travel. Patient notes that she has "vaginal bacteria" and took antibiotics for this around two weeks ago, and she still has vaginal discharge and itchiness. LMP 10/02/17. Last sexual contact was 2 days ago , one half-way male partner. PCP in [place], she does not know name. She had hospitalization late August for pancreatitis for which she was evaluated for the same symptoms. CT at that time showed mild pancreatitis, mild dilatation of CBD and distal tapering. She had transaminitis at that time. Triglycerides were noted to be 1350 during that hospitalization. MRCP showed fatty liver and dilated CBD of unclear etiology. At time of discharge on 09/25/17 she states she was given medications but she does not know which these were. She states she thinks they are for lipids and diabetes, all pills. Review of Systems ROS Limitations: Language Barrier Constitutional: COMPLAINS OF: Weight loss (a few lb), Dizziness, Change in appetite, DENIES: Fever, Chills Endocrine: COMPLAINS OF: Polydipsia, Polyuria, DENIES: Abnorml menstrual pattern (LMP ) Eyes: COMPLAINS OF: Photosensitivity, DENIES: Blurred vision, Diplopia, Eye pain Ears, nose, mouth, throat: DENIES: Tinnitus, Hearing loss, Nasal discharge, Oral lesions, Throat pain, Running Nose, Epistaxis Cardiovascular: DENIES: Chest pain, Palpitations, Syncope, Lower Extremity Edema Gastrointestinal: COMPLAINS OF: Abdominal pain, Constipation, Diarrhea, Nausea , Vomiting, Difficulty Swallowing, DENIES: Black stools, Bloody stools Genitourinary: COMPLAINS OF: Urinary frequency, Dysuria, Vaginal discharge, DENIES: Urinary incontinence Musculoskeletal: DENIES: Joint pain, Muscle aches Integumentary: COMPLAINS OF: Pruritus, Rash Hematologic/lymphatic: DENIES: Bruising, Lymphadenopathy Neurologic: COMPLAINS OF: Poor Balance, DENIES: Headache Past Family Social History Past Medical History Hyperlipidemia Hypertension - only reports hx of Pre-eclampsia Chronic Pain? Diabetes Past Surgical History Cholecystectomy Appendectomy C Section x 6 Oophorectomy bilateral Reported Medications No meds take for DM, HTN, or hyperlipidemia Metformin? Glipizide? Allergies: Coded Allergies: No Known Allergies (Unverified , 09/22/17) Active Ordered Medications Inpatient Medications Al Hydrox/Mg Hydrox/Simethicone (Mag-Al Plus Susp Liq) 30 ml ONCE ONCE PO Last administered on 10/14/17at 12:19; Start 10/14/17 at 11:45; Stop 10/14/17 at 11:46; Status DC Bisacodyl (Dulcolax Supp) 10 mg DAILY PRN RECTAL SEVERE CONSITIPATION; Start at 15:00; Status UNV Dextrose (D50w (Vial) Inj) 50 ml UNSCH PRN IV PUSH HYPOGLYCEMIA-SEE COMMENTS; Start 10/14/17 at 15:15; Status UNV Dextrose/Sodium Chloride 1,000 ml @ 200 mls/hr Q5H IV ; Start 10/14/17 at 12:52 ; Stop 10/14/17 at 13:37; Status DC Glucagon (Glucagon Inj) 1 mg UNSCH PRN OTHER HYPOGLYCEMIA-SEE COMMENTS; Start 10/14/17 at 15:15; Status UNV Insulin Aspart (NovoLOG SUPPLEMENTAL SCALE) 1 ACHS SLIDING SCALE SQ ; Start at 17:00; Status UNV Insulin Human Regular 100 units/ Sodium Chloride 100 ml @ 0 mls/hr TITRATE PRN IV Blood Sugar Management; Start 10/14/17 at 13:00; Stop 10/14/17 at 13:36; Status UNV Ketorolac Tromethamine (Toradol Inj) 30 mg ONCE ONCE IV PUSH Last administered on 10/14/17at 12:19; Start 10/14/17 at 11:45; Stop 10/14/17 at 11:46 ; Status DC Lactulose (Lactulose Liq) 30 ml DAILY PRN PO SEVERE CONSITIPATION; Start at 15:00; Status UNV Lidocaine HCl (Xylocaine 2% Viscous) 15 ml ONCE ONCE PO Last administered on at 12:19; Start 10/14/17 at 11:45; Stop 10/14/17 at 11:46; Status DC Magnesium Hydroxide (Milk Of Magnesia Liq) 30 ml Q12H PRN PO Mild constipation ; Start 10/14/17 at 15:00; Status UNV Naloxone HCl (Narcan Inj) 0.4 mg UNSCH PRN IV PUSH SEE LABEL COMMENTS; Start at 15:00; Status UNV Ondansetron HCl (Zofran Inj) 4 mg Q6H PRN IVP NAUSEA OR VOMITING; Start at 15:00; Status UNV Potassium Chloride 100 ml @ 50 mls/hr Q2H PRN IV SEE LABEL COMMENTS; Start at 13:00; Stop 10/14/17 at 13:37; Status DC Senna/Docusate Sodium (Natalie-Colace) 1 tab BID PO ; Start 10/14/17 at 21:00; Status UNV Sennosides (Senokot) 17.2 mg Q12H PRN PO Moderate constipation; Start 10/14/17 at 15:00; Status UNV Sodium Chloride (NS Flush) 2 ml BID IV FLUSH ; Start 10/14/17 at 21:00; Status UNV Family History Diabetes Grandmother DM Mother DM Social History Denies tobacco, alcohol, drug use Lives with partner and 4 children Vietnamese-speaking Contact offered by patient: Saji Field Physical Exam Vital Signs Vital Signs Date Time Temp Pulse Resp B/P (MAP) Pulse Ox O2 Delivery O2 Flow Rate FiO2 10/14/17 12:11 100 Room Air 10/14/17 12:11 100 Room Air 10/14/17 09:59 76 16 132/63 (86) 100 Physical Exam GENERAL: This is a well-nourished, well-developed female who looks tired. SKIN: Patient has hyperpigmented macules on the chest and neck, appear like old healed scars. Surgical scars noted on the abdomen. No rashes, ecchymoses or lesions. Cool and dry. HEAD: Atraumatic. Normocephalic. No temporal or scalp tenderness. EYES: Pupils equal round and reactive. Extraocular motions intact. No scleral icterus or conjunctival pallor. No injection or drainage. ENT: Nose without bleeding or purulent drainage. Throat without erythema, tonsillar hypertrophy or exudate. Uvula midline. Airway patent. NECK: Trachea midline. No JVD or lymphadenopathy. Supple, nontender, no meningeal signs. CARDIOVASCULAR: Regular rate and rhythm without murmurs, gallops, or rubs. RESPIRATORY: Clear to auscultation. Breath sounds equal bilaterally. No wheezes , rales, or rhonchi. GASTROINTESTINAL: Abdomen soft, tender to palpation mostly in epigastric area. No CVA tenderness or back pain. Nondistended. No hepato-splenomegaly, or palpable masses. No guarding. MUSCULOSKELETAL: Extremities without clubbing, cyanosis, or edema. No joint tenderness, effusion, or edema noted. No calf tenderness. NEUROLOGICAL: Awake and alert. Cranial nerves II through XII intact. Motor and sensory grossly within normal limits. Five out of 5 muscle strength in all muscle groups. Normal speech. Speaking in Vietnamese. Laboratory Laboratory Tests Test 10/14/17 10:10 10/14/17 12:30 10/14/17 12:33 10/14/17 13:05 White Blood Count 11.6 Red Blood Count 5.21 Hemoglobin 13.2 Hematocrit 37.1 Mean Corpuscular Volume 71.3 Mean Corpuscular Hemoglobin 25.3 Mean Corpuscular Hemoglobin Concent 35.4 Red Cell Distribution Width 16.7 Platelet Count 86 Mean Platelet Volume 9.5 Neutrophils (%) (Auto) 77.6 Lymphocytes (%) (Auto) 16.5 Monocytes (%) (Auto) 4.9 Eosinophils (%) (Auto) 0.6 Basophils (%) (Auto) 0.4 Neutrophils # (Auto) 9.0 Lymphocytes # (Auto) 1.9 Monocytes # (Auto) 0.6 Eosinophils # (Auto) 0.1 Basophils # (Auto) 0.0 CBC Comment AUTO DIFF Differential Comment AUTO DIFF CONFIRMED Platelet Estimate LOW Platelet Morphology Comment ENLARGED Urine Color LIGHT-YELLOW Urine Turbidity CLEAR Urine pH 7.5 Urine Specific [place] 1.027 Urine Protein TRACE Urine Glucose (UA) 1000 Urine Ketones 150 Urine Occult Blood NEG Urine Nitrite NEG Urine Bilirubin NEG Urine Urobilinogen LESS THAN 2.0 Urine Leukocyte Esterase NEG Urine RBC LESS THAN 1 Urine WBC LESS THAN 1 Urine Squamous Epithelial Cells 4 Urine Bacteria RARE Microscopic Urinalysis Comment CULT NOT INDICATED Blood Urea Nitrogen 11 Creatinine 0.77 Random Glucose 428 Total Protein 8.5 Albumin 3.5 Calcium Level 8.3 Alkaline Phosphatase 98 Aspartate Amino Transf (AST/SGOT) 99 Alanine Aminotransferase (ALT/SGPT) 65 Total Bilirubin 1.1 Sodium Level 129 Potassium Level 4.3 Chloride Level 94 Carbon Dioxide Level 11.5 Anion Gap 24 Estimat Glomerular Filtration Rate 86 Lipase 49 B-Hydroxybutyrate 0.88 Blood Gas Puncture Site VEIN Blood Gas Patient Temperature 98.6 Venous Blood pH 7.46 Venous Blood Partial Pressure CO2 37 Venous Blood Partial Pressure O2 46 Venous Blood HCO3 26 Venous Blood Oxygen Saturation 78 Venous Blood Oxygen Content 11.9 Venous Blood Base Excess 2.2 Oxygen Delivery Device ROOM AIR Blood Gas Inspired Oxygen 21 Test 10/14/17 13:47 Blood Urea Nitrogen 9 Creatinine 0.60 Random Glucose 309 Calcium Level 7.4 Sodium Level 136 Potassium Level 3.5 Chloride Level 102 Carbon Dioxide Level 16.9 Anion Gap 17 Estimat Glomerular Filtration Rate 115 Salicylates Level LESS THAN 1.7 Acetaminophen Level LESS THAN 2.0 Ethyl Alcohol Level LESS THAN 3 Result Diagram: 10/14/17 1010 10/14/17 1347 Caprini VTE Risk Assessment Caprini VTE Risk Assessment: No/Low Risk (score <= 1) Caprini Risk Assessment Model Point Value = 1 Point Value = 2 Point Value = 3 Point Value = 5 Age 41-60 Minor surgery BMI > 25 kg/m2 Swollen legs Varicose veins or History of unexplained or recurrent spontaneous Oral contraceptives or hormone replacement Sepsis (< 1 month) Serious lung disease, including pneumonia (< 1 month) Abnormal pulmonary function Acute myocardial infarction Congestive heart failure (< 1 month) History of inflammatory bowel disease Medical patient at bed rest Age 61-74 Arthroscopic surgery Major open surgery (> 45 min) Laparoscopic surgery (> 45 min) Malignancy Confined to bed (> 72 hours) Immobilizing plaster cast Central venous access Age >= 75 History of VTE Family history of VTE Factor V Leiden Prothrombin [id number] Lupus anticoagulant Anticardiolipin antibodies Elevated serum homocysteine Heparin-induced thrombocytopenia Other congenital or acquired thrombophilia Stroke (< 1 month) Elective arthroplasty Hip, pelvis, or leg fracture Acute spinal cord injury (< 1 month) Prophylaxis Regimen Total Risk Factor Score Risk Level Prophylaxis Regimen 0-1 Low Early ambulation 2 Moderate Order ONE of the following: *Sequential Compression Device (SCD) *Heparin 5000 units SQ BID 3-4 Higher Order ONE of the following medications: *Heparin 5000 units SQ TID *Enoxaparin/Lovenox 40 mg SQ daily (WT < 150 kg, CrCl > 30 mL/min) *Enoxaparin/Lovenox 30 mg SQ daily (WT < 150 kg, CrCl > 10-29 mL/min) *Enoxaparin/Lovenox 30 mg SQ BID (WT < 150 kg, CrCl > 30 mL/min) AND/OR *Sequential Compression Device (SCD) 5 or more Highest Order ONE of the following medications: *Heparin 5000 units SQ TID (Preferred with Epidurals) *Enoxaparin/Lovenox 40 mg SQ daily (WT < 150 kg, CrCl > 30 mL/min) *Enoxaparin/Lovenox 30 mg SQ daily (WT < 150 kg, CrCl > 10-29 mL/min) *Enoxaparin/Lovenox 30 mg SQ BID (WT < 150 kg, CrCl > 30 mL/min) AND *Sequential Compression Device (SCD) Assessment and Plan Assessment and Plan Patient is 32F admitted with N/V, and abdominal pain. She has recent hx of pancreatitis. On lab evaluation she was initially noted to have anion gap acidosis but this is not consistent with VBG showing ph 7.46 and CO2 37. She does have mild transaminitis but lipase negative for pancreatitis. Glucose 428 on admission. She feels better after IV fluids in ED but did report chest pain on history. Will admit for monitoring of acidosis, abdominal pain, and cardiac enzymes. ISAIAH Mccauley, Dr. Uriarte Code Status Full Code Discussed Condition With ISAIAH Mccauley Problem List: (1) Abdominal pain ICD Codes: R10.9 - Unspecified abdominal pain Status: Acute Plan: Abdominal Pain * Suspect related to gastroenteritis vs. hyperglycemia * Pain control with Toradol 15mg IV pain 1-5, Toradol 30mg IV pain 6-10, and Morphine 3mg IV breakthrough * No signs of sepsis on exam * NPO for now, advance to clear liquids once tolerating * Will monitor symptoms, get CT abdomen and/or RUQ US if indicated * Mild elevation in WBC will monitor * Repeat CMP (2) Chest pain ICD Codes: R07.9 - Chest pain, unspecified Status: Acute Plan: Chest pain is pleuritic per history but given DM and HL risk factors, cannot rule out cardiac etiology * Cardiac enzymes for ACS w/u * EKG on admission normal, will trend * CXR negative * Chest pain likely related to GI symptoms so started Protonix 40mg IV daily (3) Dehydration ICD Codes: E86.0 - Dehydration Status: Acute Plan: Dehydration * NS + 20meq Kcl/L @ 140cc/hr (4) Acidosis ICD Codes: E87.2 - Acidosis Status: Acute Plan: High Anion Gap Metabolic Acidosis * Differential includes DKA, toxin exposure, starvation, alcohol, lactic acidosis, salicylates, etc. * Tox screen negative * Suspect dehydration r/t gastroenteritis * Lactic acid negative * Beta hydroxybutyrate 0.88, will repeat though not meeting criteria for DKA and gap is closing * Serial CMPs and aggressive IVF (5) Transaminitis ICD Codes: R74.0 - Nonspecific elevation of levels of transaminase and lactic acid dehydrogenase [LDH] Status: Acute Plan: Mild, will repeat labs in AM (6) HTN (hypertension) ICD Codes: I10 - Essential (primary) hypertension Status: Chronic Plan: Unclear if pt has HTN, states she had preE, BP normal at time of admission (7) Diabetes mellitus ICD Codes: E11.9 - Type 2 diabetes mellitus without complications Status: Chronic Plan: Diabetes * Reportedly on metformin and glipizide at home. * Glucose 428-->309-->217 * KCL in IVF, replete as needed * A1c 11.7 in August 2017. * Will give supplemental NovoLog at this time, discuss starting insulin once symptoms improve and tolerating PO (8) Elevated cholesterol with high triglycerides ICD Codes: E78.2 - Mixed hyperlipidemia Status: Acute Plan: Hyperlipidemia * TG 1350 on last admission Aug 2017. Total cholesterol 259. HDL 19.8. * Repeat lipid profile. * Med rec from pharmacy (9) FEN/PPX Status: Acute Plan: FEN/PPX * Fluids: as above * Electrolytes: monitor and replete as needed * Nutrition: NPO for now, will advance diet as tolerated starting with clear liquids * PPX: SCDs, early ambulation * Vasotec 1.25mg q6hr PRN SBP >180/DBP > 100 * Stool softeners ordered per protocol Physician Certification 2 Midnight Certification Type: Admission for Inpatient Services Order for Inpatient Services The services are ordered in accordance with Medicare regulations or non- Medicare payer requirements, as applicable. In the case of services not specified as inpatient-only, they are appropriately provided as inpatient services in accordance with the 2-midnight benchmark. Estimated LOS (days): 3 days is the estimated time the patient will need to remain in the hospital, assuming treatment plan goals are met and no additional complications. Post-Hospital Plan: Home Pinky Rodarte MD Oct 14, 2017 15:08
[2017-10-14] MEDS ORDERED: GLUCAGON 1 MG/ML VIAL OTHER PRN (15:15)
[2017-10-14] MEDS ORDERED: DEXTROSE 50% IN WATER 50 ML VIAL(D50) IV PUSH PRN (15:15)
[2017-10-14 15:24] LABS: CALCIUM-PROTEIN CORRECTED 7.8 MG/DL (8.5-10.1); TOTAL PROTEIN 6.4 GM/DL (6.4-8.2)
[2017-10-14] MEDS: INSULIN ASPART SUPPLEMENTAL SCALE SQ SCH ×2 (17:31→20:26)
[2017-10-14] MEDS ORDERED: KETOROLAC TROMETHAMINE 30 MG/ML (IVP) VIAL IV PUSH PRN ×2 (18:15)
[2017-10-14] MEDS ORDERED: MORPHINE SULFATE 4 MG/ML INJ IV PUSH PRN (18:15)
[2017-10-14] MEDS ORDERED: ENALAPRILAT 1.25 MG/ML VIAL IV PUSH PRN (18:30)
--- NOTE | 2017-10-14 18:36 | RADRPT ---
EXAM DATE/TIME: 10/14/2017 18:02 [facility] COMPARISON: No previous studies available for comparison. INDICATIONS : Chest pain. MEDICAL HISTORY : Diabetes mellitus type II. SURGICAL HISTORY : Appendectomy. Cholecystectomy. section. ENCOUNTER: Initial ACUITY: 1 day PAIN SCORE: 3/10 LOCATION: Bilateral chest FINDINGS: A single view of the chest demonstrates the lungs to be symmetrically aerated without evidence of mas s, infiltrate or effusion. The cardiomediastinal contours are unremarkable. Osseous structures are intact. CONCLUSION: No acute disease. Shailesh German MD on October 14, 2017 at 18:31 Board Certified Radiologist. This report was verified electronically.
[2017-10-14] MEDS: SODIUM CHLORIDE 0.9% FLUSH 10 ML FLUSH IV FLUSH SCH (20:12)
[2017-10-14] MEDS: DOCUSATE SODIUM 50 MG/SENNA 8.6 MG TAB PO SCH (20:25)
[2017-10-14] MEDS ORDERED: PANTOPRAZOLE SODIUM 40 MG VIAL IV PUSH SCH (21:00)
[2017-10-14] MEDS: NS + KCL 40 MEQ INJ 1,000 ML IV SCH (21:07)
[2017-10-14 21:10] VITALS: BP 113/63; PULSE 60; RESP 18; TEMP 98.1; O2SAT 97
[2017-10-14 22:30] LABS: TROPONIN I LESS THAN 0.02 NG/ML (0.02-0.05)
[2017-10-14 23:23] LABS: CHOLESTEROL 298 MG/DL (120-200)
[2017-10-14 23:46] LABS: CHOLESTEROL/ HDL RATIO 14.97 RATIO; HDL CHOLESTEROL 19.9 MG/DL (40.0-60.0); TRIGLYCERIDES 2559 MG/DL (42-150); TROPONIN I LESS THAN 0.02 NG/ML (0.02-0.05)
[2017-10-15] VITALS: BP 107/53; PULSE 124; PULSE 62; RESP 18; TEMP 98.3; O2SAT 99
[2017-10-15 03:40] VITALS: PULSE 57
[2017-10-15 03:47] VITALS: BP 117/63; PULSE 61; RESP 20; TEMP 97.7; O2SAT 97
[2017-10-15] MEDS: NS + KCL 40 MEQ INJ 1,000 ML IV SCH ×2 (03:50→12:47)
[2017-10-15 06:58] LABS: BASOPHIL % 0.5 % (0.0-2.0); EOSINOPHIL # 0.1 TH/MM3 (0-0.4); EOSINOPHIL % 1.7 % (0.0-4.0); HEMATOCRIT 29.3 % (35.0-46.0); HEMOGLOBIN 9.9 GM/DL (11.6-15.3); LYMPHOCYTE # 1.9 TH/MM3 (1.0-4.8); MEAN CELL VOLUME 71.7 FL (80.0-100.0); MEAN CORPUSCULAR HEMOGLOBIN 24.1 PG (27.0-34.0); MEAN CORPUSCULAR HGB CONC 33.7 % (32.0-36.0); MEAN PLATELET VOLUME 9.2 FL (7.0-11.0); MONO % 8.1 % (0.0-8.0); MONOCYTE # 0.5 TH/MM3 (0-0.9); NEUT % 60.7 % (16.0-70.0); PLATELET COUNT 43 TH/MM3 (150-450); RED BLOOD COUNT 4.09 MIL/MM3 (4.00-5.30); RED CELL DISTRIBUTION WIDTH 17.4 % (11.6-17.2); WHITE BLOOD COUNT 6.6 TH/MM3 (4.0-11.0)
[2017-10-15 07:30] LABS: ALBUMIN 2.7 GM/DL (3.4-5.0); ALKALINE PHOSPHATASE 64 U/L (45-117); AST (GOT) 47 U/L (15-37); BICARBONATE 17.2 MEQ/L (21.0-32.0); BLOOD UREA NITROGEN 8 MG/DL (7-18); CALCIUM 7.1 MG/DL (8.5-10.1); CALCIUM-PROTEIN CORRECTED 7.6 MG/DL (8.5-10.1); CHLORIDE 109 MEQ/L (98-107); CREATININE 0.53 MG/DL (0.50-1.00); GLOMERULAR FILTRATION RATE 133 ML/MIN (>89); GLUCOSE,RANDOM 211 MG/DL (74-106); MAGNESIUM 1.9 MG/DL (1.5-2.5); SODIUM (NA) 140 MEQ/L (136-145); TOTAL BILIRUBIN ADULT 0.4 MG/DL (0.2-1.0); TOTAL PROTEIN 6.1 GM/DL (6.4-8.2); TROPONIN I LESS THAN 0.02 NG/ML (0.02-0.05)
[2017-10-15 08:00] VITALS: BP 106/58; PULSE 59; RESP 18; TEMP 98.4; O2SAT 100
[2017-10-15 08:09] LABS: ALT (GPT) 36 U/L (10-53)
[2017-10-15] MEDS: DOCUSATE SODIUM 50 MG/SENNA 8.6 MG TAB PO SCH (09:00)
[2017-10-15] MEDS ORDERED: INFLUENZA VIRUS VACCINE (QUADRIVALENT) 0.5 ML SYR IM ONE (09:00)
[2017-10-15] MEDS: SODIUM CHLORIDE 0.9% FLUSH 10 ML FLUSH IV FLUSH SCH (09:09)
[2017-10-15] MEDS: INSULIN ASPART SUPPLEMENTAL SCALE SQ SCH ×2 (09:10→12:47)
[2017-10-15 12:00] VITALS: BP 109/61; PULSE 49; RESP 18; TEMP 97.9; O2SAT 100
[2017-10-15] MEDS ORDERED: INSULIN DETEMIR 100 UNITS/ML VIAL SQ SCH (13:45)
--- NOTE | 2017-10-15 13:52 | HHI.DCPOC ---
Discharge Care Plan Diagnosis: (1) Diabetes mellitus (2) HTN (hypertension) (3) Dehydration Goals to Promote Your Health * To prevent worsening of your condition and complications * To maintain your health at the optimal level Directions to Meet Your Goals Take your medications as prescribed Follow your dietary instruction Follow activity as directed Keep your appointments as scheduled Take your immunizations and boosters as scheduled If your symptoms worsen call your PCP, if no PCP go to Urgent Care Center or Emergency Room Smoking is Dangerous to Your Health. Avoid second hand smoke Call the 24-hour hour crisis hotline for domestic abuse at Pinky Rodarte MD Oct 15, 2017 13:52
[2017-10-15] MEDS ORDERED: METF500T PO ×2 (14:02→14:05)
[2017-10-15] MEDS ORDERED: GLUCKIT15 (14:05)
[2017-10-15] MEDS ORDERED: LANCETS1 MI1 (14:05)
[2017-10-15] MEDS ORDERED: BIOM30MI (14:05)
[2017-10-15] MEDS ORDERED: GLUCTES12 (14:05)
[2017-10-15] MEDS ORDERED: INSU1MIS15 (14:05)
[2017-10-15] MEDS ORDERED: LEVEMIR SQ (14:05)
[2017-10-15] MEDS ORDERED: PRAV40TA2 PO (14:07)
--- NOTE | 2017-10-15 14:24 | HHI.FPPN ---
Subjective Remarks Patient was seen and examined this morning. [employer] used ([employer]). She is eager to go home today. She denies nausea, vomiting, abdominal pain. No reported diarrhea. No fevers or chills. Ambulating without difficulty. Tolerating foods. (Pinky Rodarte MD) Objective Vitals Vital Signs Date Time Temp Pulse Resp B/P (MAP) Pulse Ox O2 Delivery O2 Flow Rate FiO2 10/15/17 12:00 97.9 49 18 109/61 (77) 100 10/15/17 09:00 Room Air 10/15/17 08:00 98.4 59 18 106/58 (74) 100 10/15/17 03:47 97.7 61 20 117/63 (81) 97 10/15/17 03:40 57 10/15/17 00:00 Room Air 10/15/17 00:00 98.3 62 18 107/53 (71) 99 10/15/17 00:00 62 10/14/17 23:35 Room Air 10/14/17 21:10 98.1 60 18 113/63 (80) 97 I/O 10/14/17 10/14/17 10/14/17 10/15/17 10/15/17 10/15/17 07:00 15:00 23:00 07:00 15:00 23:00 Intake Total 2000 ml 500 ml Balance 2000 ml 500 ml Intake IV Total 2000 ml 500 ml # Voids 1 (Pinky Rodarte MD) Result Diagram: 10/15/17 0538 10/15/17 0538 Imaging Last Impressions Chest X-Ray 10/14/17 0000 Signed Impressions: Service Date/Time: Saturday, October 14, 2017 18:02 - CONCLUSION: No acute disease. Shailesh German MD Objective Remarks GEN: Well-developed, well-nourished patient. No acute distress. Walking without difficulty. SKIN: No rashes, ecchymoses or lesions. Warm and dry. ENT: Mucous membranes moist, no tonsillar erythema CV: Regular rate and rhythm without obvious murmurs LUNGS: Clear to auscultation bilaterally. Normal respiratory effort. No wheezes , rales, rhonchi. GI: Soft, nondistended. Bowel sounds present. Nontender to palpation today EXT: No edema. No calf tenderness. NEURO/PSYCH: Awake, alert. Appropriate insight and judgment. Normal speech Medications and IVs Inpatient Medications Al Hydrox/Mg Hydrox/Simethicone (Mag-Al Plus Susp Liq) 30 ml ONCE ONCE PO Last administered on 10/14/17at 12:19; Start 10/14/17 at 11:45; Stop 10/14/17 at 11:46; Status DC Bisacodyl (Dulcolax Supp) 10 mg DAILY PRN RECTAL SEVERE CONSITIPATION; Start at 15:00 Dextrose (D50w (Vial) Inj) 50 ml UNSCH PRN IV PUSH HYPOGLYCEMIA-SEE COMMENTS; Start 10/14/17 at 15:15 Dextrose/Sodium Chloride 1,000 ml @ 200 mls/hr Q5H IV ; Start 10/14/17 at 12:52 ; Stop 10/14/17 at 13:37; Status DC Enalaprilat (Vasotec Inj) 1.25 mg Q6H PRN IV PUSH SBP> OR = 180, DBP> OR = 100 ; Start 10/14/17 at 18:30 Glucagon (Glucagon Inj) 1 mg UNSCH PRN OTHER HYPOGLYCEMIA-SEE COMMENTS; Start 10/14/17 at 15:15 Influenza Virus Vaccine (Flu (Quadrivalent) Vaccine Inj) 0.5 ml ONCE ONCE IM ; Start 10/15/17 at 09:00; Stop 10/15/17 at 09:01; Status DC Insulin Aspart (NovoLOG SUPPLEMENTAL SCALE) 1 ACHS SLIDING SCALE SQ Last administered on 10/15/17at 12:47; Start 10/14/17 at 17:00 Insulin Detemir (Levemir Inj) 5 units Q12HR SQ ; Start 10/16/17 at 09:00 Insulin Human Regular 100 units/ Sodium Chloride 100 ml @ 0 mls/hr TITRATE PRN IV Blood Sugar Management; Start 10/14/17 at 13:00; Stop 10/14/17 at 18:15; Status DC Ketorolac Tromethamine (Toradol Inj) 30 mg Q6H PRN IV PUSH Pain 6-10;if unable to take PO; Start 10/14/17 at 18:15; Stop 10/19/17 at 18:14 Lactulose (Lactulose Liq) 30 ml DAILY PRN PO SEVERE CONSITIPATION; Start at 15:00 Lidocaine HCl (Xylocaine 2% Viscous) 15 ml ONCE ONCE PO Last administered on at 12:19; Start 10/14/17 at 11:45; Stop 10/14/17 at 11:46; Status DC Magnesium Hydroxide (Milk Of Magndorothea Liq) 30 ml Q12H PRN PO Mild constipation ; Start 10/14/17 at 15:00 Morphine Sulfate (Morphine Inj) 3 mg Q3H PRN IV PUSH BREAKTHROUGH PAIN; Start 10/14/17 at 18:15 Naloxone HCl (Narcan Inj) 0.4 mg UNSCH PRN IV PUSH SEE LABEL COMMENTS; Start at 18:15 Ondansetron HCl (Zofran Inj) 4 mg Q6H PRN IVP NAUSEA OR VOMITING Last administered on 10/14/17at 15:38; Start 10/14/17 at 15:00 Pantoprazole Sodium (Protonix Inj) 40 mg Q24H IV PUSH Last administered on 10/14at 21:14; Start 10/14/17 at 21:00 Potassium Chloride/Sodium Chloride 1,000 ml @ 125 mls/hr Q8H IV Last administered on 10/15/17at 12:47; Start 10/14/17 at 20:00 Potassium Chloride 100 ml @ 50 mls/hr Q2H PRN IV SEE LABEL COMMENTS; Start at 13:00; Stop 10/14/17 at 13:37; Status DC Senna/Docusate Sodium (Natalie-Colace) 1 tab BID PO ; Start 10/14/17 at 21:00 Sennosides (Senokot) 17.2 mg Q12H PRN PO Moderate constipation; Start 10/14/17 at 15:00 Sodium Chloride (NS Flush) 2 ml BID IV FLUSH Last administered on 10/15/17at 09: 09; Start 10/14/17 at 21:00 (Pinky Rodarte MD) Urinary Catheter: No (Pinky Rodarte MD) Vascular Central Line Catheter: No (Pinky Rodarte MD) A/P Assessment and Plan Patient is 32F admitted with N/V, and abdominal pain and this has resolved. She has a recent history of pancreatitis but lipase was normal on evaluation. She did have abnormal labs on admission, most notably anion gap which quick closed and lipid profile which could not be evaluated due to markedly elevated triglycerides >3000. She had elevated A1c on last admission and is recommended to start on insulin which she agrees to do at this time. Will discharge with insulin (Levemir 5 units twice daily), pravastatin 40 mg daily to diabetes, and metformin 500 mg twice daily with patient urged and agreeable to follow-up with PCP within [address] Mccauley, Dr. Duenas Discharge Planning Patient to be discharged home today 10/15 Case management assisted with getting patient information to to clinics in her home, [facility] in [facility] in [place], and [facility] on [address] in [place]. She states she hardly has a PCP but was given this information to assist in getting her quick follow-up (Pinky Rodarte MD) Attending Attestation Table rounds about patients admission discussed in detail with Dr Rodriguez, Dr Rodarte, Dr Mccauley and Dr Conde this morning EMR reviewed Patient seen and examined with team Agree with the contents of above note See Orders (Maik Duenas MD) Problem List: (1) Abdominal pain ICD Codes: R10.9 - Unspecified abdominal pain Status: Resolved Plan: Abdominal Pain: Resolved * Suspect related to gastroenteritis vs. hyperglycemia * Pain control with Toradol 15mg IV pain 1-5, Toradol 30mg IV pain 6-10, and Morphine 3mg IV breakthrough * No signs of sepsis on exam * NPO for now, advance to clear liquids once tolerating * Mild elevation in WBC also resolved (2) Chest pain ICD Codes: R07.9 - Chest pain, unspecified Status: Resolved Plan: Chest pain is pleuritic per history but given DM and HL risk factors, ACS workup performed and negative * Cardiac enzymes for ACS w/u * EKGs normal * CXR negative * Chest pain likely related to GI symptoms (3) Dehydration ICD Codes: E86.0 - Dehydration Status: Resolved Plan: Dehydration: Resolved * Status post IV fluids, bolus and NS + 20meq Kcl/L @ 140cc/hr (4) Acidosis ICD Codes: E87.2 - Acidosis Status: Resolved Plan: High Anion Gap Metabolic Acidosis * Differential includes DKA, toxin exposure, starvation, alcohol, lactic acidosis, salicylates, etc. * Tox screen negative * Suspect dehydration r/t gastroenteritis * Lactic acid negative * Beta hydroxybutyrate 0.88, will repeat though not meeting criteria for DKA and gap is closing * Serial CMPs and aggressive IVF (5) Transaminitis ICD Codes: R74.0 - Nonspecific elevation of levels of transaminase and lactic acid dehydrogenase [LDH] Status: Resolved Plan: Mild, resolved on repeat lab (6) HTN (hypertension) ICD Codes: I10 - Essential (primary) hypertension Status: Chronic Plan: Unclear if pt has HTN, states she had preE, BP normal at time of admission (7) Diabetes mellitus ICD Codes: E11.9 - Type 2 diabetes mellitus without complications Status: Chronic Plan: Diabetes * Reportedly on metformin and glipizide at home. * Glucose 428-->309-->217 --> 200s * A1c 11.7 in August 2017. * Supplemental NovoLog requirements were significant, will give Levemir 10 units today, continue Levemir 5 units twice daily at home, counseled on importance of following up with her PCP * Received diabetic counseling from family life educator and was given a glucose meter and information (8) Elevated cholesterol with high triglycerides ICD Codes: E78.2 - Mixed hyperlipidemia Status: Acute Plan: Hyperlipidemia * TG 1350 on last admission Aug 2017. Total cholesterol 259. HDL 19.8. * Repeat lipid profile showing triglycerides greater than 3 * Med rec from pharmacy showed that patient had not filled any medication * She is discharged on pravastatin 40 mg daily given diabetes, she should follow -up with her PCP within the week, CMP recommended as outpatient to monitor liver (9) FEN/PPX Status: Acute Plan: FEN/PPX * Fluids: as above * Electrolytes: monitor and replete as needed * Nutrition: NPO for now, will advance diet as tolerated starting with clear liquids * PPX: SCDs, early ambulation * Vasotec 1.25mg q6hr PRN SBP >180/DBP > 100 * Stool softeners ordered per protocol (Pinky Rodarte MD) Pinky Rodarte MD Oct 15, 2017 14:24 Maik Duenas MD Oct 15, 2017 19:19
--- NOTE | 2017-10-15 20:19 | EKG ---
Date Performed: 10/15/2017 Time Performed: 05:41:18 PTAGE: 32 years EKG: Sinus bradycardia with interpolated PVC(s) Anterior T wave changes are borderline abnormal Borderline ECG PREVIOUS TRACING : 10/14/2017 22.33 Since the previous tracing, no significant change noted DOCTOR: Ric Tucker Interpretating Date/Time 10/15/2017 20:17:31
--- NOTE | 2017-10-15 20:34 | EKG ---
Date Performed: 10/14/2017 Time Performed: 22:33:07 PTAGE: 32 years EKG: Sinus rhythm WITH FIRST DEGREE AV BLOCK NONSPECIFIC T-WAVE ABNORMALITY ABNORMAL ECG PREVIOUS TRACING : 09/22/2017 21.26 Since the previous tracing, no significant change noted DOCTOR: Ric Tcuker Interpretating Date/Time 10/15/2017 20:33:19
[2017-10-16] MEDS ORDERED: INSULIN DETEMIR 100 UNITS/ML VIAL SQ SCH (09:00)
== END 2017-10-15 15:24 | disposition home or self-care (01) | DRG 638 ==
LOC: NEPD 09:34 → NEDA 14:40 → N04A 20:52
PROVIDERS: ADMIT Family Medicine; ATTEND Family Medicine
DX: E11.65 Type 2 diabetes mellitus with hyperglycemia (principal); E87.2 Acidosis; K76.0 Fatty (change of) liver, not elsewhere classified; E86.0 Dehydration; I10 Essential (primary) hypertension; E78.2 Mixed hyperlipidemia; R74.0 Nonspecific elevation of levels of transaminase and lactic acid dehydrogenase [LDH]; K52.9 Noninfective gastroenteritis and colitis, unspecified; Z23 Encounter for immunization; Z83.3 Family history of diabetes mellitus
CPT/HCPCS: 71045; 80048; 80053; 80061; 80307; 81001; 82010; 82550; 82805; 82948; 83605; 83690; 83735; 83930; 84100; 84155; 84484; 84703; 85025; 87491; 87591; 90686; 93005; 96361; 96374; 96375; C9113; J1815; J1885; J2405; J3480; J7030; Q2038